=== PATIENT | female | born 1940 | race Caucasian/White ===

== ENCOUNTER → 2017-02-09 | Outpatient (CLI) | payer MEDICARE, OTHER ==
--- NOTE | 2017-02-09 14:24 | US ---
EXAMINATION TYPE: US abdomen complete DATE OF EXAM: 02/09/2017 2:09 PM COMPARISON: US 2012 CLINICAL HISTORY: R10.33 PERIUMBILICAL PAIN; Epigastric and pelvic pain EXAM MEASUREMENTS: Liver Length: 12.6 cm Gallbladder Wall: 02 cm CBD: 0.6 cm Spleen: 8.0 cm Right Kidney: 11.5 x 6.2 x 4.7 cm Left Kidney: 12.4 x 8.4 x 6.5 cm Pancreas: hyperechoic Liver: attenuated Gallbladder: shadowing, solitary stone near neck, with minimal mobility, size = 1.4 x 1.3 x 0.5cm Evidence for sonographic Meyers's sign: No CBD: wnl Spleen: wnl Right Kidney: wnl Left Kidney: lobular appearance; mid pole cyst = 2.0 x 2.1 x 1.8cm Upper IVC: wnl Abd Aorta: wnl IMPRESSION: 1. Hepatic steatosis. 2. Gallstone near the gallbladder neck. 3. Left renal cyst.
== END | disposition home or self-care (01) ==
LOC: RADUSWWP 13:11
PROVIDERS: ATTEND Family Medicine
DX: K76.0 Fatty (change of) liver, not elsewhere classified (principal); K80.20 Calculus of gallbladder without cholecystitis without obstruction; N28.1 Cyst of kidney, acquired
CPT/HCPCS: 76700

== ENCOUNTER 2017-03-02 08:44 | Day surgery (SDC) | payer MEDICARE, OTHER ==
[2017-02-27 11:43] VITALS: BMI 28.2
[~2017-03-02 08:44] MED LIST: CLINDAMYCIN 900 MG in DEXTROSE 5% IN WATER 50 ML IVPB ONE; DEXAMETHASONE SOD PHOSPHATE 10 MG/ML 1 ML VIAL IV ONE; HEPARIN SODIUM,PORCINE 5,000 UNIT/ML 1 ML VIAL SQ ONE; LACTATED RINGERS 1,000 ML IV SCH; LIDOCAINE 1% 20 ML VIAL (10MG/ML) FOR IV START INTRADERMA PRN; MIDAZOLAM 2 MG/2 ML VIAL IV PRN; ONDANSETRON 4 MG/2 ML VIAL IVP ONE; SCOPOLAMINE 1.5MG/72HR PATCH TRANSDERM ONE
[2017-03-02] MEDS ORDERED: BUPIVACAIN-EPI 0.25%-1:200,000 30 ML VIAL SQ ONE ×3 (10:25→11:30)
[2017-03-02] MEDS ORDERED: GLYCOPYRROLATE 0.2 MG/ML 2 ML VIAL ONE (10:26)
[2017-03-02] MEDS ORDERED: ePHEDrine 50 MG/ML 1 ML AMP ONE (10:26)
[2017-03-02] MEDS ORDERED: MIDAZOLAM 2 MG/2 ML VIAL ONE (10:26)
[2017-03-02] MEDS ORDERED: ROCURONIUM BROMIDE 10 MG/ML 10 ML VIAL IV ONE (10:26)
[2017-03-02] MEDS ORDERED: SUCCINYLCHOLINE CHLORIDE 100 MG/5 ML SYR IV ONE (10:26)
[2017-03-02] MEDS ORDERED: PROPOFOL 10 MG/ML 20 ML VIAL IV ONE (10:26)
[2017-03-02] MEDS ORDERED: LIDOCAINE 1% INJ 10MG/ML (20 ML MDV) ONE (10:26)
[2017-03-02] MEDS ORDERED: NEOSTIGMINE 1 MG/ML 10 ML VIAL ONE (10:26)
[2017-03-02] MEDS ORDERED: fentaNYL (PF) 50 MCG/ML 2 ML AMP ONE (10:26)
[2017-03-02] MEDS ORDERED: LACTATED RINGERS 1,000 ML IV ONE (11:29)
[2017-03-02 11:52] VITALS: TEMP 96.9
--- NOTE | 2017-03-02 11:57 | P.OP ---
Date of Procedure: 03/02/17 Preoperative Diagnosis: Chronic choelcystitis Postoperative Diagnosis: Chronic cholecystitis Procedure(s) Performed: Laparoscopic cholecystectomy Implants: Anesthesia: SPARKLE Surgeon: Lauren Dubon Pathology: other Condition: stable Disposition: PACU Indications for Procedure: Intetrmittent RUQ pain with ultrasound proven cholelithiasis Operative Findings: Chronic inflamed gall bladder with gallstone Description of Procedure: The patient is a 28-year-old female who presented with epigastric and upper abdominal pain which localized in the right upper quadrant was tender with an ultrasound suggested cholelithiasis. Clinical diagnosis of chronic cholecystitis was made. The risks benefits and possible complications of the procedure were discussed in detail and informed consent was obtained. Patient was identified in the preop operating holding area questions were answered and she was taken back to the operating room where she was placed in the supine position. She was given general anesthesia with endotracheal intubation followed by the placement of an orogastric tube and a timeout was called. The Abdomen is prepped and draped in the usual sterile surgical fashion. After infiltraiton with local anesthesia, let upper qadrant was incised and the abdomen was entered using the optiview technique under direct vision. THe abdomen was then isufflated to 15 mm HG and an epigastric 10 mm port, a subumbilical 5 mm port, 2 RUQ 5 mm ports were placed under vision. The patient had dense adhesions with the peritoneum and the omentum. There were meticulously taken down with the help of blunt dissection pulling up the fundus into view. There were dense adhesions around the cystic duct and in the Region of the Calot's triangle. Meticulous dissection was done to expose the cystic duct and the cystic artery after which they were clipped proximal and distally and sharply transected. The gallbladder was then taken off the gallbladder fossa with the help of electrocautery. Hemostasis to the help of electrocautery. Furthermore Surgicel was placed in the gallbladder fossa to aid in hemostasis. The abdomen was thoroughly irrigated and sucked dry. Jim were noted to be in the appropriate position at this time to take procedure was terminated. the 10 mm port was removed and the port site was closed with the help of a True Dupont using 0 Vicryl.The Gas was shut off and all the 5 mm ports were removed. The abdomen was thoroughly desufflated. The remaining local anesthesia was infiltrated into the incisions and the incisions were closed with the help of 4-0 Monocryl Steri-Strips and Dermabond was applied. The patient was extubated and taken to recovery room in stable condition and Álvarez catheter were removed prior to extubation. There were no complications.
[2017-03-02] MEDS ORDERED: hydrALAZINE HCL 20 MG/ML 1 ML VIAL IV ONE (12:13)
[2017-03-02] MEDS: HYDROmorphone 1 MG/ML 1 ML SYRINGE IVP PRN ×5 (12:23→12:40)
[2017-03-02] MEDS ORDERED: KETOROLAC 30 MG/ML 1 ML VIAL IVP ONE (12:44)
[2017-03-02] MEDS ORDERED: HYDROcodone/APAP 5-325MG 1 EACH TAB PO ONE (13:38)
[2017-03-02 14:36] VITALS: BP 131/78; PULSE 81; RESP 16
== END 2017-03-02 16:03 | disposition home or self-care (01) ==
LOC: OR 08:44
PROVIDERS: ATTEND Surgery
DX: K80.12 Calculus of gallbladder with acute and chronic cholecystitis without obstruction (principal); E07.9 Disorder of thyroid, unspecified; Z87.891 Personal history of nicotine dependence; Z79.82 Long term (current) use of aspirin; Z79.899 Other long term (current) drug therapy; Z88.0 Allergy status to penicillin
CPT/HCPCS: 88304; 47562; J2250; J0360; J1644; J1100; J2710; J2405; J2001; J3010; J1885; J1170; J0330; J2704

== ENCOUNTER → 2017-09-21 | Outpatient (CLI) | payer MEDICARE, OTHER ==
--- NOTE | 2017-09-25 09:48 | MM ---
Reason for exam: screening (asymptomatic). Last mammogram was performed 1 year ago. History: Patient is postmenopausal. Benign left mammotome panel of the left breast, October 07, 2005. Physical Findings: A clinical breast exam by your physician is recommended on an annual basis and results should be correlated with mammographic findings. MG 3D Screening Mammo W/Cad Bilateral CC and MLO view(s) were taken. Prior study comparison: September 21, 2016, bilateral MG 3d screening mammo w/cad. July 01, 2015, bilateral MG screening mammo w CAD. The breast tissue is heterogeneously dense. This may lower the sensitivity of mammography. Previous mammotome biopsy in the left breast. No significant changes when compared with prior studies. ASSESSMENT: Benign, BI-RAD 2 RECOMMENDATION: Routine screening mammogram of both breasts in 1 year.
== END | disposition home or self-care (01) ==
LOC: RADMAMWWP 13:45
PROVIDERS: ATTEND Family Medicine
DX: Z12.31 Encounter for screening mammogram for malignant neoplasm of breast (principal)
CPT/HCPCS: 77063; G0202

== ENCOUNTER 2017-09-28 08:15 | Day surgery (SDC) | payer MEDICARE, OTHER ==
[2017-09-26 12:33] VITALS: BMI 29.0
[~2017-09-28 08:15] MED LIST changes: -CLINDAMYCIN 900 MG in DEXTROSE 5% IN WATER 50 ML IVPB ONE; -DEXAMETHASONE SOD PHOSPHATE 10 MG/ML 1 ML VIAL IV ONE; -HEPARIN SODIUM,PORCINE 5,000 UNIT/ML 1 ML VIAL SQ ONE; -LIDOCAINE 1% 20 ML VIAL (10MG/ML) FOR IV START INTRADERMA PRN; -MIDAZOLAM 2 MG/2 ML VIAL IV PRN; -ONDANSETRON 4 MG/2 ML VIAL IVP ONE; -SCOPOLAMINE 1.5MG/72HR PATCH TRANSDERM ONE
[2017-09-28 08:37] VITALS: RESP 16; TEMP 97
[2017-09-28] MEDS ORDERED: LIDOCAINE 1% 20 ML VIAL (10MG/ML) FOR IV START INTRADERMA ONE (08:48)
[2017-09-28] MEDS ORDERED: MIDAZOLAM 2 MG/2 ML VIAL ONE (09:17)
[2017-09-28] MEDS ORDERED: PROPOFOL 10 MG/ML 20 ML VIAL IV ONE (09:17)
[2017-09-28] MEDS ORDERED: LIDOCAINE 1% INJ 10MG/ML (20 ML MDV) ONE (09:17)
--- NOTE | 2017-09-28 10:01 | P.PCN ---
Date of Procedure: 09/28/17 Procedure(s) Performed: BRIEF HISTORY: Patient is a 77-year-old, pleasant, white female, scheduled for an upper endoscopy as a part of evaluation of severe epigastric pain and heartburn for the last several months duration. Recently she was started on Prilosec 20 mg daily and symptoms and symptoms are gradually improving. She is scheduled for an upper endoscopy to rule out peptic ulcer disease. PROCEDURE PERFORMED: Esophagogastroduodenoscopy with biopsy. PREOPERATIVE DIAGNOSIS: Epigastric pain/GERD IV sedation per anesthesia. PROCEDURE: After informed consent was obtained, the patient was brought into the endoscopy unit. IV sedation was administered by Anesthesia under continuous monitoring. Initially the Olympus GIF-140 video endoscope was inserted into the mouth. Esophagus intubated without any difficulty. It was gradually advanced into the stomach and duodenum and carefully examined. The bulb and the second part of the duodenum appeared normal. The scope at this time was withdrawn to the stomach, adequately insufflated with air, and upon careful examination, mucosa of the antrum, had multiple scattered erosions consistent with erosive gastritis and biopsies were done from this area. The body, cardia and the fundus appeared normal. The scope was then withdrawn into the esophagus. The GE junction was located at 39 cm from the incisors. The esophagus appeared normal. Biopsies were done from the distal esophagus to rule out years of age esophagitis. There were no erosions or ulcerations seen and the patient tolerated the procedure well. IMPRESSION: 1. Antral erosive gastritis. 2. No evidence of esophagitis or peptic ulcer disease. RECOMMENDATIONS: The findings of this examination were discussed with the patient as well as a family. She was advised to follow with the biopsy results. She will continue with Prilosec 20 mg daily and follow antireflux measures..
[2017-09-28 10:20] VITALS: BP 173/83; PULSE 49
== END 2017-09-28 10:35 | disposition home or self-care (01) ==
LOC: ORWHC2ENDO 08:15
PROVIDERS: ATTEND Internal Medicine Gastroenterology
DX: K29.50 Unspecified chronic gastritis without bleeding (principal); K21.9 Gastro-esophageal reflux disease without esophagitis; I10 Essential (primary) hypertension; Z79.899 Other long term (current) drug therapy; E78.5 Hyperlipidemia, unspecified; E07.9 Disorder of thyroid, unspecified; Z79.82 Long term (current) use of aspirin; Z79.1 Long term (current) use of non-steroidal anti-inflammatories (NSAID); Z88.0 Allergy status to penicillin
CPT/HCPCS: 88305; 88342; 43239; J2250; J2001; J2704

== ENCOUNTER → 2018-05-22 | Outpatient (CLI) | payer MEDICARE, OTHER ==
--- NOTE | 2018-05-23 10:10 | ECHOF ---
Referral Reason:R06.02 Dyspnea MEASUREMENTS -------- HEIGHT: 165.1 cm WEIGHT: 81.6 kg BP: RVIDd: 2.6 cm (< 3.3) IVSd: 1.0 cm (0.6 - 1.1) LVIDd: 4.5 cm (3.9 - 5.3) LVPWd: 1.1 cm (0.6 - 1.1) IVSs: 1.1 cm LVIDs: 3.6 cm LVPWs: 1.0 cm LA Diam: 2.7 cm (2.7 - 3.8) LAESV Index (A-L): 35.64 ml/m Ao Diam: 3.2 cm (2.0 - 3.7) AV Cusp: 2.2 cm (1.5 - 2.6) LA Diam: 3.6 cm (2.7 - 3.8) MV EXCURSION: 18.547 mm (> 18.000) MV EF SLOPE: 172 mm/s (70 - 150) EPSS: 1.9 cm MV E Addi: 0.94 m/s MV DecT: 177 ms MV A Addi: 0.00 m/s MV E/A Ratio: 927.04 RAP: 5.00 mmHg RVSP: 41.81 mmHg FINDINGS -------- Sinus rhythm. This was a technically adequate study. The left ventricular size is normal. Left ventricular wall thickness is normal. Overall left vent ricular systolic function is mildly impaired with, an EF between 45 - 50 %. Septal Hypokinesis The right ventricle is normal in size and function. LA is moderately dilated 34-39 ml/m2 RA appears enlarged. Aortic valve is trileaflet and is moderately thickened. Trace to mild aortic regurgitation. There is no evidence of aortic stenosis. The mitral valve leaflets are mildly thickened. Mild mitral annular calcification present. Modera te mitral regurgitation is present. Mild tricuspid regurgitation present. There is mild pulmonary hypertension. The right ventricular systolic pressure, as measured by Doppler, is 41.81mmHg. Trace/mild (physiologic) pulmonic regurgitation. The aortic root size is normal. The IVC is dilated with normal collapse. There is no pericardial effusion. CONCLUSIONS -------- 1. Sinus rhythm. 2. This was a technically adequate study. 3. The left ventricular size is normal. 4. Left ventricular wall thickness is normal. 5. Overall left ventricular systolic function is mildly impaired with, an EF between 45 - 50 %. 6. Septal Hypokinesis 7. LA is moderately dilated 34-39 ml/m2 8. RA appears enlarged. 9. Aortic valve is trileaflet and is moderately thickened. 10. Trace to mild aortic regurgitation. 11. There is no evidence of aortic stenosis. 12. The mitral valve leaflets are mildly thickened. 13. Mild mitral annular calcification present. 14. Moderate mitral regurgitation is present. 15. Mild tricuspid regurgitation present. 16. There is mild pulmonary hypertension. 17. The right ventricular systolic pressure, as measured by Doppler, is 41.81mmHg. 18. Trace/mild (physiologic) pulmonic regurgitation. 19. The aortic root size is normal. 20. The IVC is dilated with normal collapse. 21. There is no pericardial effusion. ACCOUNTS RECEIVABLE PROCESSOR: Guanako Bunn RDCS
== END | disposition home or self-care (01) ==
LOC: RADECHMAIN 15:21
PROVIDERS: ATTEND Family Medicine
DX: I08.1 Rheumatic disorders of both mitral and tricuspid valves (principal); I27.20 Pulmonary hypertension, unspecified
CPT/HCPCS: 93306

== ENCOUNTER 2018-05-29 07:57 | Inpatient (IN) | payer MEDICARE, OTHER ==
[2018-05-29] MEDS ORDERED: ALPRAZolam 0.5 MG TAB PO PRN (10:29)
[2018-05-29] MEDS ORDERED: SODIUM CHLORIDE 0.9% 1,000 ML in EMPTY BAG 1 BAG IV ONE (10:29)
[2018-05-29] MEDS ORDERED: NITROGLYCERIN SL TABS 0.4 MG TAB SUBLINGUAL PRN (10:29)
[2018-05-29] MEDS ORDERED: ALPRAZolam 0.25 MG TAB PO PRN (10:29)
--- NOTE | 2018-05-29 10:54 | NM ---
EXAMINATION TYPE: NM myocardial SPECT single DATE OF EXAM: 05/29/2018 COMPARISON: NONE HISTORY: Abnormal echo Following administration of 9.8 mCi Tc 99m Sestamibi. Images obtained 45 minutes post injection. FINDINGS: Rest images are submitted only. Could not exclude a defect along the inferior margin of the septum. N o perfusion images are submitted in the exam is nondiagnostic in assessment for some stress-induced reversible ischemia. Ejection fraction 49%. IMPRESSION: Stress images were not completed the exam is nondiagnostic for stress-induced reversible ischemia. Ej ection fraction is 49%.
--- NOTE | 2018-05-29 10:58 | XR ---
EXAMINATION TYPE: XR chest 2V DATE OF EXAM: 05/29/2018 COMPARISON: NONE TECHNIQUE: PA and lateral views submitted. HISTORY: Abnormal echo, shortness of breath FINDINGS: The lungs are clear and there is no pneumothorax, pleural effusion, or focal pneumonia. Atheroscler otic change aorta. Arthropathy of the shoulders. Hypertrophic and degenerative change of the spine. S urgical clips in the abdomen. No overt failure. Linear changes in the left upper lobe likely related to scar or atelectasis. No overt failure. IMPRESSION: 1. No acute process.
[2018-05-29] MEDS ORDERED: HEPARIN SODIUM,PORCINE 5,000 UNIT/ML 1 ML VIAL IV PRN (14:28)
[2018-05-29] MEDS ORDERED: HEPARIN SOD,PORK IN 0.45% NACL 25,000 UNIT in 0.45% NACL 1 500ML.BAG IV SCH (14:30)
[2018-05-29 14:38] VITALS: BMI 28.1
--- NOTE | 2018-05-29 14:41 | CONS ---
CONSULTATION Mrs. Nixon is a 77-year-old female with known history of hypertension, history of hyperlipidemia who presented to undergo a myocardial perfusion imaging. For the last few months, she has been complaining of progressive dyspnea on exertion as well as discomfort between the shoulder blades. She recently had an echocardiogram revealed mildly impaired left ventricular systolic function with segmental wall motion abnormality. The patient denies any knowledge of a history of congestive heart failure or obstructive coronary artery disease. She has been told that she had an irregular heartbeat and had a Holter monitor a few years ago, but she is not aware of atrial fibrillation. She has no dizziness. She has some palpitation. No syncope. No clear PND or orthopnea. She has peripheral edema that is getting worse. Her coronary risk factors are remarkable for hypertension, hyperlipidemia. She is nondiabetic. She stopped smoking 20 years ago. MEDICATION: Her medications include Zestril, atenolol, Dyazide, statin. REVIEW OF SYSTEMS: RESPIRATORY SYSTEM: She had dyspnea on exertion. No recent wheezing or cough. GI SYSTEM: No recent GI bleed. No peptic ulcer disease. SYSTEM: No dysuria or hematuria. NERVOUS SYSTEM: No stroke or seizure. PHYSICAL EXAMINATION: She is a 77-year-old female, alert, oriented, in no apparent distress. Blood pressure 160/100 with the heart rate in the 60s. HEAD: Normocephalic. EYES: Sclerae anicteric. NECK: Good carotid upstroke. No bruit. No jugular venous distention. LUNGS: Clear to auscultation. HEART: Irregular, irregular. S1, S2. No S3 with systolic murmur at the base, ejection type. No diastolic murmur. No rub. ABDOMEN: Soft, nontender. Positive bowel sounds. No organomegaly. EXTREMITIES: +1 to 2 edema bilaterally. EKG revealed atrial fibrillation with nonspecific ST-T wave changes. IMPRESSION: 1. Symptoms of discomfort, interscapular, exertional in pattern with dyspnea on exertion, highly suggestive of angina pectoris. 2. Atrial fibrillation of unknown duration. 3. Hypertension. 4. Symptoms of congestive heart failure. 5. Hyperlipidemia. RECOMMENDATION: We will hold on the stress test. I will admit the patient to the hospital. She will receive intravenous heparin, intravenous diuretics and serial enzymes will be obtained. I would recommend to proceed with coronary angiography to assess her status and guide her treatment. The rationale behind the procedure as well as the risks and complications were discussed with the patient who is in full understanding and agreement. MMODL / IJN: [id number] /
[2018-05-29 14:59] LABS: Basophils % (A) 1 %; Eosinophils # (A) 0.2 k/uL (0-0.7); Eosinophils % (A) 4 %; HCT 41.4 % (34.0-46.0); HGB 13.6 gm/dL (11.4-16.0); Lymphocytes # (A) 1.1 k/uL (1.0-4.8); Lymphocytes % (A) 19 %; MCH 30.2 pg (25.0-35.0); MCHC 32.9 g/dL (31.0-37.0); MCV 91.7 fL (80.0-100.0); Monocytes # (A) 0.6 k/uL (0-1.0); Monocytes % (A) 10 %; Neutrophils # (A) 3.8 k/uL (1.3-7.7); Neutrophils % (A) 65 %; Platelet Count 176 k/uL (150-450); RBC 4.51 m/uL (3.80-5.40); RDW 14.5 % (11.5-15.5); WBC 5.9 k/uL (3.8-10.6)
[2018-05-29] MEDS ORDERED: HEPARIN SODIUM,PORCINE 5,000 UNIT/ML 1 ML VIAL IV ONE (15:00)
[2018-05-29 15:09] LABS: INR 1.2 (<1.2); Partial Thromboplastin Time 25.3 sec (22.0-30.0); Prothrombin Time 11.3 sec (9.0-12.0)
[2018-05-29 15:13] LABS: Calcium 9.2 mg/dL (8.4-10.2); Potassium 4.1 mmol/L (3.5-5.1); Total Bilirubin 0.9 mg/dL (0.2-1.3); Total Protein 6.8 g/dL (6.3-8.2)
[2018-05-29] MEDS: NITROGLYCERIN OINT 1 INCH/GM PACKET TOPICAL SCH ×3 (15:55→22:24)
[2018-05-29] MEDS: FUROSEMIDE 10 MG/ML 2 ML VIAL IV SCH ×2 (16:20→20:05)
--- NOTE | 2018-05-29 16:58 | P.HPIM ---
History of Present Illness Patient is a very pleasant 77-year-old female came in with complaints of on and off shortness of breath has been going on for some time. Denied any significant chest pain but does have some palpitations going to the back of the scapula. Patient denied any fever chills. Patient was supposed to get stress test today did not complete the stresses because of elevated blood pressure. Patient was having on and off symptoms of irregular heartbeat because of which patient had a Holter monitor in the past patient has bilateral pedal edema worsening progressively for about last 2 months pitting pedal edema although doesn't have any elevated JVD does have elevated BNP chest x-ray did not show any pulmonary edema. Patient denied any symptoms of orthopnea or PND. Patient was evaluated by cardiology and they believe patient has an anginal he couldn't of shortness of breath, unstable angina and was started on IV heparin troponins and EKGs are being obtained every 6 hours and patient will undergo cardiac catheterization tomorrow. Review of Systems REVIEW OF SYSTEMS: CONSTITUTIONAL: No fever, no malaise, no fatigue. HEENT: No recent visual problems or hearing problems. Denied any sore throat. CARDIOVASCULAR: As mentioned in HPI PULMONARY: no cough, no hemoptysis. GASTROINTESTINAL: No diarrhea, no nausea, no vomiting, no abdominal pain. Normoactive bowel sounds. NEUROLOGICAL: No headaches, no weakness, no numbness. HEMATOLOGICAL: Denies any bleeding or petechiae. GENITOURINARY: Denies any burning micturition, frequency, or urgency. MUSCULOSKELETAL/RHEUMATOLOGICAL: Denies any joint pain, swelling, or any muscle pain. ENDOCRINE: Denies any polyuria or polydipsia. The rest of the 14-point review of systems is negative. Past Medical History Past Medical History: Hyperlipidemia, Hypertension, Thyroid Disorder Additional Past Medical History / Comment(s): OCC. IRREGULAR HEART BEAT ( TOLD TO STOP CAFFEINE). , Bladder LEAKAGE. History of Any Multi-Drug Resistant Organisms: None Reported Past Surgical History: Cholecystectomy, Orthopedic Surgery Additional Past Surgical History / Comment(s): AD CARPAL TUNNEL.; Colonoscopy/ EGD, rt knee arthroscopy Past Anesthesia/Blood Transfusion Reactions: No Reported Reaction Past Psychological History: No Psychological Hx Reported Additional Psychological History / Comment(s): pt is independant, lives with spouse in own home. drives. no home care services, no medical equipment Smoking Status: Former smoker Past Alcohol Use History: Occasional Additional Past Alcohol Use History / Comment(s): QUIT SMOKING 1995,STARTED SMOKING 1956. SMOKED < 1PPD. SMOKED APPROX 38 YEARS. Past Drug Use History: None Reported - Past Family History Mother Family Medical History: Coronary Artery Disease (CAD) Additional Family Medical History / Comment(s): CABG IN HER 80'S Father Family Medical History: Chest Pain / Angina Additional Family Medical History / Comment(s): THIEN AT AGE 57 Medications and Allergies Home Medications Medication Instructions Recorded Confirmed Type Aspirin 81 mg PO DAILY 06/25/15 05/29/18 History B Complex-Vit C-Vit E-Zinc [Z-Bec] 1 tab PO DAILY 06/25/15 05/29/18 History Biotin 5 mg PO DAILY 06/25/15 05/29/18 History Cholecalciferol [Vitamin D3] 1,000 units PO DAILY 06/25/15 05/29/18 History Ferrous Sulfate [Feosol] 325 mg PO MOWEFR 06/25/15 05/29/18 History Levothyroxine Sodium [Synthroid] 112 mcg PO QAM 06/25/15 05/29/18 History Lisinopril [Zestril] 40 mg PO DAILY 06/25/15 05/29/18 History Triamterene-Hctz 37.5-25Mg 1 cap PO DAILY 06/25/15 05/29/18 History [Dyazide] Atenolol [Tenormin] 100 mg PO BID 02/27/17 05/29/18 History Simvastatin [Zocor] 20 mg PO DAILY 02/27/17 05/29/18 History Omeprazole [PriLOSEC] 20 mg PO AC-BRKFST 09/26/17 05/29/18 History Calcium Slow Release 1200mg 1 tab PO DAILY 05/29/18 05/29/18 History Allergies Allergy/AdvReac Type Severity Reaction Status Date / Time Penicillins Allergy Rash/Hives Verified 05/29/18 14:37 Physical Exam Vitals: Vital Signs Temp Resp BP 05/29/18 14:19 96.9 F L 18 134/80 Intake and Output 05/29/18 05/29/18 05/29/18 06:59 14:59 22:59 Other: Weight 81.5 kg PHYSICAL EXAMINATION: GENERAL: The patient is alert and oriented x3, not in any acute distress. Well developed, well nourished. HEENT: Pupils are round and equally reacting to light. EOMI. No scleral icterus. No conjunctival pallor. Normocephalic, atraumatic. No pharyngeal erythema. No thyromegaly. CARDIOVASCULAR: S1 and S2 present. No murmurs, rubs, or gallops. No JVD PULMONARY: Chest is clear to auscultation, no wheezing or crackles. ABDOMEN: Soft, nontender, nondistended, normoactive bowel sounds. No palpable organomegaly. MUSCULOSKELETAL: No joint swelling or deformity. EXTREMITIES: No cyanosis, clubbing, or bilateral pitting pedal edema. NEUROLOGICAL: Gross neurological examination did not reveal any focal deficits. SKIN: No rashes. Results CBC & Chem 7: 05/29/18 14:47 05/29/18 14:47 Labs: Abnormal Lab Results - Last 24 Hours (Table) 05/29/18 05/29/18 Range/Units 14:47 14:47 INR 1.2 H (<1.2) Glucose 132 H (74-99) mg/dL AST 52 H (14-36) U/L ALT 75 H (9-52) U/L Assessment and Plan Plan: -Shortness of breath: Possible anginal equal and: Patient will undergo cardiac catheterization troponins and EKGs will be obtained. Patient will undergo cardiac catheterization is on IV heparin -Bilateral pedal edema with elevated BNP: Patient is receiving Lasix echocardiogram will obtain tomorrow. -Possible atrial fibrillation: Will monitor here overnight for any episodes approximately A. fib presently sinus rhythm. -Hyperlipidemia -Hypertension For above-mentioned chronic medical problems patient will be resumed and continued on appropriate home medications
[2018-05-29] MEDS: ATENOLOL 50 MG TAB PO SCH (20:05)
[2018-05-30 03:45] LABS: Basophils % (A) 1 %; Eosinophils # (A) 0.3 k/uL (0-0.7); Eosinophils % (A) 4 %; HCT 40.8 % (34.0-46.0); HGB 12.4 gm/dL (11.4-16.0); Lymphocytes # (A) 1.8 k/uL (1.0-4.8); Lymphocytes % (A) 24 %; MCH 28.2 pg (25.0-35.0); MCHC 30.4 g/dL (31.0-37.0); MCV 92.9 fL (80.0-100.0); Monocytes # (A) 0.7 k/uL (0-1.0); Monocytes % (A) 9 %; Neutrophils # (A) 4.5 k/uL (1.3-7.7); Neutrophils % (A) 60 %; Platelet Count 172 k/uL (150-450); RBC 4.39 m/uL (3.80-5.40); RDW 14.7 % (11.5-15.5); WBC 7.4 k/uL (3.8-10.6)
[2018-05-30 04:27] LABS: Calcium 8.8 mg/dL (8.4-10.2); Potassium 3.4 mmol/L (3.5-5.1)
[2018-05-30] MEDS: NITROGLYCERIN OINT 1 INCH/GM PACKET TOPICAL SCH (06:03)
[2018-05-30] MEDS: LEVOTHYROXINE 112 MCG TAB PO SCH (06:04)
[2018-05-30] MEDS: LISINOPRIL 20 MG TAB PO SCH (06:05)
[2018-05-30] MEDS: ATENOLOL 50 MG TAB PO SCH ×2 (06:05→20:09)
[2018-05-30] MEDS: PANTOPRAZOLE 40 MG TABLET PO SCH (06:05)
[2018-05-30] MEDS ORDERED: POTASSIUM CHLORIDE 20 MEQ in WATER FOR INJECTION 1 100ML.BAG IVPB STA (08:19)
[2018-05-30] MEDS ORDERED: ASPIRIN 81 MG PO SCH (09:00)
[2018-05-30] MEDS ORDERED: ATORVASTATIN 10 MG TAB PO SCH (09:00)
[2018-05-30] MEDS ORDERED: HEPARIN SODIUM 1,000 UN/ML (10ML VL) ONE (09:34)
[2018-05-30] MEDS ORDERED: LIDOCAINE 1% INJ 10MG/ML (20 ML MDV) ONE (09:34)
[2018-05-30] MEDS ORDERED: fentaNYL (PF) 50 MCG/ML 2 ML AMP ONE (09:34)
[2018-05-30] MEDS ORDERED: VERAPAMIL 2.5 MG/ML 2 ML AMP ONE (09:34)
[2018-05-30] MEDS ORDERED: fentaNYL (PF) 50 MCG/ML 2 ML AMP IVP ONE (10:15)
[2018-05-30] MEDS ORDERED: LIDOCAINE 1% (PF) 10MG/ML VIAL SQ ONE (10:18)
[2018-05-30] MEDS ORDERED: IV FLUID CONTINUATION 1,000 ML IV ONE (10:20)
[2018-05-30] MEDS ORDERED: VERAPAMIL SYRINGE (5 MG/10 ML) INTRAARTER ONE (10:24)
[2018-05-30] MEDS ORDERED: MIDAZOLAM 2 MG/2 ML VIAL ONE (10:25)
[2018-05-30] MEDS ORDERED: MIDAZOLAM 2 MG/2 ML VIAL IVP ONE (10:27)
[2018-05-30] MEDS ORDERED: IOPAMIDOL-370 125ML BTL INJ ONE (10:36)
[2018-05-30] MEDS ORDERED: FLUID CONTINUATION IV ONE ×2 (10:41)
[2018-05-30] MEDS ORDERED: [UNRECOGNIZED DRUG - OTHER] IV ONE ×2 (10:41)
[2018-05-30] MEDS ORDERED: RX INFO: IV CONTRAST WAS GIVEN 1 EACH MISC MISCELLANE PRN (10:57)
[2018-05-30] MEDS ORDERED: SODIUM CHLORIDE 0.9% 1,000 ML IV SCH (11:00)
--- NOTE | 2018-05-30 12:21 | P.PN ---
Subjective Patient was admitted for episodic shortness of breath which was believed secondary to coronary artery disease underwent cardia catheterization which not show any significant atherosclerotic coronary occlusive disease but was found to be in atrial fibrillation. Which probably is contributing to her shortness of breath. Patient is also being treated for congestive heart failure do not have an ejection fraction available no echocardiac exam is available at this time patient doesn't have any JVD does have pedal edema, chest x-ray did not show any pulmonary edema. Patient is started on anticoagulations by cardiology and patient is on atenolol for rate control and low-dose of Lasix. We will obtain basic metabolic profile tomorrow. Constitutional: Denied any fatigue denied any fever. Cardio vascular: denied any chest pain, palpitations Gastrointestinal denied any nausea vomiting Pulmonary: Denied any shortness of breath cough Neurologic denied any new focal deficits Objective - Vital Signs Vital signs: Vital Signs Temp 97.1 F L 05/30/18 08:00 Pulse 66 05/30/18 08:00 Resp 18 05/30/18 08:00 BP 141/76 05/30/18 08:00 Pulse Ox 97 05/30/18 08:00 Intake & Output 05/29/18 05/30/18 05/30/18 18:59 06:59 18:59 Intake Total 243.794 225 Output Total 800 Balance -556.206 225 Weight 81.5 kg 82.3 kg Intake: IV 225 Intake, IV Titration 243.794 Amount Heparin Sod,Pork in 0.45% 243.794 NaCl 25,000 unit In 0.45 % NaCl 1 500ml.bag @ 12 UNITS/KG/HR 19.56 mls/hr IV .Q24H [facility] Rx#: [id number] Output: Urine 800 Other: Voiding Method Toilet Toilet # Voids 2 - Exam PHYSICAL EXAMINATION: GENERAL: The patient is alert and oriented x3, not in any acute distress. Well developed, well nourished. HEENT: Pupils are round and equally reacting to light. EOMI. No scleral icterus. No conjunctival pallor. Normocephalic, atraumatic. No pharyngeal erythema. No thyromegaly. CARDIOVASCULAR: S1 and S2 present. No murmurs, rubs, or gallops. PULMONARY: Chest is clear to auscultation, no wheezing or crackles. ABDOMEN: Soft, nontender, nondistended, normoactive bowel sounds. No palpable organomegaly. MUSCULOSKELETAL: Deferred to orthopedic surgery EXTREMITIES: No cyanosis, clubbing, or pedal edema. NEUROLOGICAL: Gross neurological examination did not reveal any focal deficits. SKIN: No rashes. - Labs CBC & Chem 7: 05/30/18 02:54 05/30/18 02:54 Labs: Abnormal Lab Results - Last 24 Hours (Table) 05/29/18 05/29/18 05/29/18 Range/Units 14:47 14:47 17:54 MCHC (31.0-37.0) g/dL INR 1.2 H (<1.2) APTT 82.7 H (22.0-30.0) sec Sodium (137-145) mmol/L Potassium (3.5-5.1) mmol/L BUN (7-17) mg/dL Glucose 132 H (74-99) mg/dL AST 52 H (14-36) U/L ALT 75 H (9-52) U/L 05/30/18 05/30/18 05/30/18 Range/Units 02:54 02:54 02:54 MCHC 30.4 L (31.0-37.0) g/dL INR (<1.2) APTT 78.0 H (22.0-30.0) sec Sodium 136 L (137-145) mmol/L Potassium 3.4 L (3.5-5.1) mmol/L BUN 20 H (7-17) mg/dL Glucose 120 H (74-99) mg/dL AST (14-36) U/L ALT (9-52) U/L Assessment and Plan Plan: -Shortness of breath: Probably secondary to atrial fibrillation presently rate controlled on atenolol is being started on anticoagulation. Patient underwent cardiac catheterization which did not show any significant atherosclerotic coronary occlusive disease -Bilateral pedal edema with elevated BNP: Patient is receiving Lasix echocardiogram not available at this time unsure whether patient has congestive heart failure. Awaiting cardiac cath reports. -Possible atrial fibrillation: Will monitor here overnight for any episodes approximately A. fib presently sinus rhythm. -Hyperlipidemia -Hypertension For above-mentioned chronic medical problems patient will be resumed and continued on appropriate home medications
[2018-05-30] MEDS ORDERED: POTASSIUM CHLORIDE 20 MEQ in WATER FOR INJECTION 1 100ML.BAG IVPB ONE (12:30)
--- NOTE | 2018-05-30 12:57 | CC ---
CARDIAC CATHETERIZATION REPORT Mrs. Nixon is a 77-year-old female known history of hypertension who presented with symptoms of progressive dyspnea as well as interscapular pain related to physical activity. Her echocardiogram was reported showing evidence of segmental wall motion abnormality. In view of that, recommendation was made regarding cardiac catheterization. The procedure as well as the risks and complications were discussed with the patient who is in full understanding and agreement. PROCEDURE: Patient was brought to catholic priest in the fasting semi-sedated state after receiving fentanyl and Benadryl and achieving moderate conscious sedated state. Using Xylocaine anesthesia in the Seldinger technique, a 6-Northern Irish sheath was introduced into the right radial artery. Selective right and left coronary angiography performed using 5-Northern Irish 3.5 bend right and left Gustabo catheters. Multiple views of coronary artery including hemiaxial views obtained. Following that 5-Northern Irish tight pigtail catheter was introduced in the left ventricle and a 30-degree WINSTON view of the left ventricle was obtained. Following that, catheter and sheaths were removed. Hemostasis was obtained with deployment of TR band. There was no immediate complication. Patient is returned to room in stable condition. Of note, the patient received intra-arterial verapamil as well as 4500 units of intravenous heparin. FINDINGS: LEFT MAIN: This is a large-sized vessel bifurcating in left circumflex, left anterior descending artery. Left main coronary artery has no evidence of high-grade stenosis. LEFT ANTERIOR DESCENDING ARTERY: This vessel gives rise to a large diagonal branch in mid segment. The LAD tapers down in distal third. The LAD and its branches have no evidence of high-grade stenosis. LEFT CIRCUMFLEX: This is a nondominant vessel, moderate in caliber giving rise to a large first obtuse marginal branch. The left circumflex as well as branches have no evidence of high-grade stenosis. RIGHT CORONARY ARTERY: This is a large dominant vessel bifurcating PDA and posterolateral segment and branches. In the distal segment prior to the bifurcation, there is a 30% to 40% plaque. The rest of the vessel has no high-grade stenosis. The right PDA reaches toward the inferoapical wall. LEFT VENTRICULOGRAM: Left ventriculogram was performed in 30-degree WINSTON view and revealed normal left ventricular size and systolic function. Ejection fraction is 55%. There was no significant mitral regurgitation. An incidental abdominal aortic aneurysm infrarenal was noted that appears to be small in size. HEMODYNAMICS: There was no gradient across the aortic valve. The left ventricle end- diastolic pressure was 20 to 24 mmHg. CONCLUSION: 1. Mild disease in the distal right coronary artery. 2. Normal left ventricular size and systolic function. 3. Evidence of abdominal aortic aneurysm. RECOMMENDATION: At this time, I will continue medical therapy, patient will be started on anticoagulation and if she continues to be in atrial fibrillation, attempt to cardiovert her back to sinus mechanism will be performed at a later time. Those findings and recommendation were discussed with the patient and her family who are in full understanding and agreement. An ultrasound of her abdomen will be obtained to further evaluate her abdominal aortic aneurysm. Duration of the procedure is 22 minutes. FLORES / SOHAILN: [id number] /
--- NOTE | 2018-05-30 13:03 | LTR ---
May 30, 2018 Re: Gillian Nixon Dear Dr. Marino: I had the opportunity to perform cardiac catheterization on Mrs. Nixon at [facility] on the 30 of May and a full copy of the procedure note will be forwarded to you. In brief, she was found to have mild disease in the distal right coronary artery with a normal left ventricular size and systolic function. An incidental finding was an abdominal aortic aneurysm that appears to be small in caliber. At this time, I will add anticoagulation in view of her atrial fibrillation and maximize her medical therapy and depending on her progress, further recommendation will be made regarding attempt to restore sinus mechanism. I will keep you updated on her progress. Thank you again for allowing me the opportunity to participate in her care. Please feel free to call for any questions. Sincerely yours, MD FLORES Tracy / FILIPE: [id number] /
[2018-05-30] MEDS ORDERED: Magnesium Replacement Protocol 1 EACH MISC MISCELLANE PRN (13:08)
[2018-05-30] MEDS: SPIRONOLACTONE 25 MG TAB PO SCH (13:24)
[2018-05-30] MEDS: MAGNESIUM SULFATE-D5W PMX 1 GM in DEXTROSE/WATER 1 100ML.BAG IVPB SCH ×2 (14:47→16:00)
[2018-05-30] MEDS: FUROSEMIDE 20 MG TAB PO SCH (19:41)
[2018-05-30] MEDS: FUROSEMIDE 10 MG/ML 2 ML VIAL IV SCH (20:34)
[2018-05-30 23:25] VITALS: RESP 16
[2018-05-31] MEDS: PANTOPRAZOLE 40 MG TABLET PO SCH (06:07)
[2018-05-31] MEDS: LEVOTHYROXINE 112 MCG TAB PO SCH (06:07)
[2018-05-31 07:13] LABS: Basophils % (A) 0 %; Eosinophils # (A) 0.3 k/uL (0-0.7); Eosinophils % (A) 5 %; HCT 39.1 % (34.0-46.0); HGB 12.6 gm/dL (11.4-16.0); Lymphocytes # (A) 1.4 k/uL (1.0-4.8); Lymphocytes % (A) 22 %; MCH 29.9 pg (25.0-35.0); MCHC 32.4 g/dL (31.0-37.0); MCV 92.4 fL (80.0-100.0); Mean Platelet Volume 8.2; Monocytes # (A) 0.6 k/uL (0-1.0); Monocytes % (A) 9 %; Neutrophils # (A) 3.9 k/uL (1.3-7.7); Neutrophils % (A) 62 %; Platelet Count 156 k/uL (150-450); RBC 4.23 m/uL (3.80-5.40); RDW 14.5 % (11.5-15.5); WBC 6.2 k/uL (3.8-10.6)
[2018-05-31 07:25] LABS: Calcium 8.8 mg/dL (8.4-10.2); Magnesium 2.3 mg/dL (1.6-2.3); Potassium 3.9 mmol/L (3.5-5.1)
--- NOTE | 2018-05-31 08:36 | US ---
EXAMINATION TYPE: US abdomen complete DATE OF EXAM: 05/31/2018 COMPARISON: 02/09/2017 CLINICAL HISTORY: AAA. Pt states possible aneurysm seen during heart cath, pt has no complaints at th is time, GB removed EXAM MEASUREMENTS: Liver Length: 14.8 cm CBD: 0.5 cm Spleen: 8.3 cm Right Kidney: 11.1 x 5.0 x 5.2 cm Left Kidney: 8.0 x 4.3 x 3.3 cm Pancreas: The visualized portions within normal limits. Portions of the pancreatic body and tail are obscured by bowel gas. Liver: wnl Gallbladder: Surgically absent Evidence for sonographic Meyers's sign: No CBD: wnl Spleen: wnl Right Kidney: wnl Left Kidney: Small in size with multiple cysts, largest at upper pole= 1.8 x 1.4 x 2.0 cm Upper IVC: wnl Abd Aorta: "Patient at distal portion with greatest measurement= 2.7 cm IMPRESSION: 1. There is shadowing involving the distal aorta which limits its assessment. There is Ectasia of the distal abdominal aorta measuring a maximal dimension 2.9 cm. This may be somewhat underestimation gi sincere shadowing. Somewhat irregular atherosclerotic plaque noted. A CAT scan is recommended for more co mplete analysis of the abdominal aorta. 2. Multiple tiny left-sided renal lesion suggestive of cysts
[2018-05-31] MEDS ORDERED: ATORVASTATIN 40 MG TAB PO SCH (09:00)
[2018-05-31 09:12] VITALS: TEMP 99.2
[2018-05-31] MEDS: ATENOLOL 50 MG TAB PO SCH (09:19)
[2018-05-31] MEDS: LISINOPRIL 20 MG TAB PO SCH (09:20)
[2018-05-31] MEDS: FUROSEMIDE 20 MG TAB PO SCH (09:20)
[2018-05-31] MEDS: SPIRONOLACTONE 25 MG TAB PO SCH (09:20)
--- NOTE | 2018-05-31 10:52 | PN ---
PROGRESS NOTE Mrs. Nixon is a 77-year-old female who presented with symptoms of dyspnea and interscapular discomfort with physical activity. She was noted to be in atrial fibrillation. She underwent cardiac catheterization revealed mild obstructive coronary artery disease. She is doing well today. She denies any chest pain, no palpitation. No syncope. She continued to be on Eliquis 5 mg twice a day, Tenormin 100 mg twice a day, Lipitor 40 mg daily, furosemide 40 mg twice a day, lisinopril 40 mg daily, levothyroxine, Protonix, spironolactone 25 mg daily. PHYSICAL EXAMINATION: Blood pressure 139/70 with the heart rate in the 70s. LUNGS: Clear. HEART: Irregular, irregular, S1, S2. No S3 with systolic murmur. ABDOMEN: Soft nontender. Right radial pulse intact. LAB DATA: Lab data revealed a potassium 3.9, BUN and creatinine 15 and 0.79. Hemoglobin of 12.6. IMPRESSION: 1. Atrial fibrillation of unknown duration, appears to be recent. 2. Mild coronary artery disease. 3. Symptoms of progressive dyspnea and congestive heart failure with preserved systolic function, probably exacerbated by the atrial fibrillation. RECOMMENDATION: Patient will be started on anticoagulation with Eliquis. Continue rest of medical regimen. She will be discharged home today and followed as an outpatient. MMODL / IJN: [id number] /
[2018-05-31 12:05] VITALS: BP 138/77; PULSE 64
--- NOTE | 2018-05-31 12:32 | P.DS ---
Providers Date of admission: 05/29/18 13:38 Attending physician: Daphne Walker Consults: 05/29/18 14:31 Consult Physician Routine Consulting Provider: Nata Chapa Consult Reason/Comments: Unstable angina Do you want consulting provider notified?: Already Contacted Primary care physician: R[facility] Course: Patient was admitted for episodic shortness of breath which was believed secondary to coronary artery disease underwent cardia catheterization which not show any significant atherosclerotic coronary occlusive disease but was found to be in atrial fibrillation. Which probably is contributing to her shortness of breath. Patient is also being treated for congestive heart failure do not have an ejection fraction available no echocardiac exam is available at this time patient doesn't have any JVD does have pedal edema, chest x-ray did not show any pulmonary edema. Patient is started on anticoagulations by cardiology and patient is on atenolol for rate control and low-dose of Lasix. We will obtain basic metabolic profile tomorrow. 05/31/2018 Patient's shortness of breath is believed secondary to atrial fibrillation which is well controlled rate is well controlled at this point of time beta alonso management and anticoagulation as per cardiology and patient is being discharged on Eliquis. My suspicion is low that the patient has systolic dysfunction or diastolic dysfunction patient does have peripheral edema will benefit from Lasix patient is also being discharged on Lasix and also lactone. Patient will follow with cardiology and the primary care physician as an outpatient PHYSICAL EXAMINATION: GENERAL: The patient is alert and oriented x3, not in any acute distress. Well developed, well nourished. HEENT: Pupils are round and equally reacting to light. EOMI. No scleral icterus. No conjunctival pallor. Normocephalic, atraumatic. No pharyngeal erythema. No thyromegaly. CARDIOVASCULAR: S1 and S2 present. No murmurs, rubs, or gallops. PULMONARY: Chest is clear to auscultation, no wheezing or crackles. ABDOMEN: Soft, nontender, nondistended, normoactive bowel sounds. No palpable organomegaly. MUSCULOSKELETAL: Deferred to orthopedic surgery EXTREMITIES: No cyanosis, clubbing, or pedal edema significant improved NEUROLOGICAL: Gross neurological examination did not reveal any focal deficits. SKIN: No rashes. Assessment and Plan Plan: -Shortness of breath: Probably secondary to atrial fibrillation presently rate controlled on atenolol -Bilateral pedal edema with elevated My suspicion is low that patient has chronic systolic and diastolic dysfunction patient may have peripheral edema patient does not have any pulmonary edema during this hospitalization. -Possible atrial fibrillation: Will monitor here overnight for any episodes approximately A. fib presently sinus rhythm. -Hyperlipidemia -Hypertension Plan - Discharge Summary Discharge Rx Participant: No New Discharge Prescriptions: New Apixaban [Eliquis] 5 mg PO BID #180 tab Atorvastatin [Lipitor] 40 mg PO DAILY #40 tab Furosemide [Lasix] 20 mg PO BID@0900,1600 #180 tab Spironolactone [Aldactone] 25 mg PO DAILY #90 tab Continue Ferrous Sulfate [Iron (65 MG Elemental)] 325 mg PO MOWEFR Cholecalciferol [Vitamin D3] 1,000 units PO DAILY B Complex-Vit C-Vit E-Zinc [Z-Bec] 1 tab PO DAILY Biotin 5 mg PO DAILY Lisinopril [Zestril] 40 mg PO DAILY Levothyroxine Sodium [Synthroid] 112 mcg PO QAM Atenolol [Tenormin] 100 mg PO BID Omeprazole [PriLOSEC] 20 mg PO AC-BRKFST Calcium Slow Release 1200mg 1 tab PO DAILY Discontinued Aspirin 81 mg PO DAILY Triamterene-Hctz 37.5-25Mg [Dyazide] 1 cap PO DAILY Simvastatin [Zocor] 20 mg PO DAILY Discharge Medication List B Complex-Vit C-Vit E-Zinc [Z-Bec] 1 tab PO DAILY 06/25/15 [History] Biotin 5 mg PO DAILY 06/25/15 [History] Cholecalciferol [Vitamin D3] 1,000 units PO DAILY 06/25/15 [History] Ferrous Sulfate [Iron (65 MG Elemental)] 325 mg PO MOWEFR 06/25/15 [History] Levothyroxine Sodium [Synthroid] 112 mcg PO QAM 06/25/15 [History] Lisinopril [Zestril] 40 mg PO DAILY 06/25/15 [History] Atenolol [Tenormin] 100 mg PO BID 02/27/17 [History] Omeprazole [PriLOSEC] 20 mg PO AC-BRKFST 09/26/17 [History] Calcium Slow Release 1200mg 1 tab PO DAILY 05/29/18 [History] Apixaban [Eliquis] 5 mg PO BID #180 tab 05/31/18 [Rx] Atorvastatin [Lipitor] 40 mg PO DAILY #40 tab 05/31/18 [Rx] Furosemide [Lasix] 20 mg PO BID@0900,1600 #180 tab 05/31/18 [Rx] Spironolactone [Aldactone] 25 mg PO DAILY #90 tab 05/31/18 [Rx] Follow up Appointment(s)/Referral(s): Nata Chapa MD [STAFF PHYSICIAN] - 1 Week Activity/Diet/Wound Care/Special Instructions: Greg pack filled @[facility] with free 30 day coupon Discharge Disposition: HOME SELF-CARE
[2018-05-31] MEDS ORDERED: RIVAROXABAN 20 MG TAB PO SCH (17:30)
[2018-05-31] MEDS ORDERED: APIXABAN 5 MG TAB PO SCH (21:00)
== END 2018-05-31 15:01 | disposition home or self-care (01) | DRG 287 ==
LOC: RADNMMAIN 07:57 → 6SEL 13:38
PROVIDERS: ADMIT Internal Medicine; ATTEND Internal Medicine
PROC: B2111ZZ Fluoroscopy of Multiple Coronary Arteries using Low Osmolar Contrast (ICD-10-PCS; principal; 2018-05-30 09:45)
PROC: 4A023N7 Measurement of Cardiac Sampling and Pressure, Left Heart, Percutaneous Approach (ICD-10-PCS; principal; 2018-05-30 09:45)
PROC: B2151ZZ Fluoroscopy of Left Heart using Low Osmolar Contrast (ICD-10-PCS; principal; 2018-05-30 09:45)
DX: I48.91 Unspecified atrial fibrillation (principal); I25.10 Atherosclerotic heart disease of native coronary artery without angina pectoris; E78.5 Hyperlipidemia, unspecified; I71.4 Abdominal aortic aneurysm, without rupture; Z79.01 Long term (current) use of anticoagulants; Z79.82 Long term (current) use of aspirin; Z79.899 Other long term (current) drug therapy; Z82.49 Family history of ischemic heart disease and other diseases of the circulatory system; Z87.891 Personal history of nicotine dependence; Z90.49 Acquired absence of other specified parts of digestive tract; Z79.890 Hormone replacement therapy; Z88.0 Allergy status to penicillin; I10 Essential (primary) hypertension; R60.9 Edema, unspecified
CPT/HCPCS: 71046; 76700; 78451; 80048; 80053; 80061; 83735; 83880; 84443; 84484; 85025; 85610; 85730; 93458

== ENCOUNTER → 2018-06-15 | Outpatient (CLI) | payer MEDICARE, OTHER ==
--- NOTE | 2018-06-17 11:17 | CT ---
EXAMINATION TYPE: CT angio abdomen DATE OF EXAM: 06/15/2018 4:38 PM COMPARISON: Ultrasound 05/31/2018 HISTORY: AORTIC ANEURYSM WITHOUT RUPTURE CT DLP: 1808 mGycm Automated exposure control for dose reduction was used. TECHNIQUE: Performed with IV Contrast, patient injected with 100 mL of Isovue 370. Three-D reconstructed images are performed by the technologist on the [employer] computer and presented f or review. FINDINGS: The proximal abdominal aorta below the renal arteries is 2.5 cm. There is some fusiform prominence wi thin the midportion of the abdominal aorta with an AP diameter 2.6 cm. The bifurcation is approximate ly 1.5 cm. Common iliac arteries internal and external iliac arteries to the common femoral arteries. Nonaneurysmal patent. No focal stenosis is evident renal arteries and superior mesenteric and celiac axis are patent. There is likely stenosis of the left renal artery with poor vascularity within the left kidney compared to the right. Left renal atrophy appears to be present. Studies performed for evaluation of the aorta. Given this limitation liver spleen pancreas and adrena l glands appear within normal limits. Gallbladder is surgically absent. The inferior vena cava is unr emarkable. Left kidney is atrophic at the superior pole. The inferior pole has a more normal appearan ce. Diverticuli are present within the distal colon. Loops of bowel without contrast appear otherwise unr emarkable. Uterus is unremarkable. Adnexal regions are clear. Urinary bladder appears unremarkable. The appendix is visualized is normal. No hydronephrosis is evident. No renal stones are identified. IMPRESSION: 1. MILD FUSIFORM PROMINENCE MID ABDOMINAL AORTA WITH AN AP DIAMETER OF 2.6 CM. 2. SUPERIOR POLE LEFT KIDNEY APPEARS ATROPHIC WITH DIMINISHED CONTRAST SUGGESTING SEVERE STENOSIS. TH E INFERIOR POLE IS MORE NORMAL APPEARANCE ALTHOUGH IS ATROPHIC COMPARED TO THE RIGHT KIDNEY.
== END | disposition home or self-care (01) ==
LOC: RADCTMAIN 14:55
PROVIDERS: ATTEND Internal Medicine Interventional Cardiology
DX: I71.4 Abdominal aortic aneurysm, without rupture (principal)
CPT/HCPCS: 82565; 84520; 74175; 36415; Q9967

== ENCOUNTER 2018-06-26 05:54 | Day surgery (SDC) | payer MEDICARE, OTHER ==
[2018-06-25 10:20] VITALS: BMI 29.0
[2018-06-26] MEDS ORDERED: SODIUM CHLORIDE 0.9% 1,000 ML IV SCH ×2 (06:13→07:45)
[2018-06-26 06:30] VITALS: TEMP 98
[2018-06-26] MEDS: BENZOCAINE SPRAY 1 CAN MUCOUS MEM ONE ×2 (07:20→07:22)
[2018-06-26] MEDS ORDERED: PROPOFOL 10 MG/ML 20 ML VIAL IV ONE ×2 (07:23)
--- NOTE | 2018-06-26 07:52 | ECHOT ---
TRANSESOPHAGEAL ECHOCARDIOGRAM INDICATION: Evaluation of left atrial appendage. PROCEDURE: After explaining the procedure to the patient, its risks and the complications, her blood pressure, heart rate, O2 saturation were monitored. She received sedation per anesthesia department. The probe was introduced in the esophagus. Images were obtained. Following that, the probe was removed. There was no immediate complication. FINDINGS: Left atrial size is mildly dilated. Left atrial appendage is normal. Spontaneous contrast was noted. The aortic valve is a tricuspid valve with fibrocalcific changes and preserved opening. The mitral valve and tricuspid valve appears to be normal. Descending thoracic aorta appears to be normal. Contrast bubble study revealed no shunting across the interatrial septum. No pericardial effusion was noted. Doppler pulse wave and color Doppler obtained and revealed mild mitral, tricuspid and aortic regurgitation. There was no shunting by color Doppler study. CONCLUSION: 1. Normal left ventricular size and systolic function. 2. No evidence of thrombus in the left atrial appendage with spontaneous contrast. 3. Aortic sclerosis with no evident stenosis. 4. Mild mitral, aortic and tricuspid regurgitation. 5. No shunting across the interatrial septum. MMODL / IJN: [id number] /
--- NOTE | 2018-06-26 07:55 | CE ---
CARDIAC ELECTROPHYSIOLOGY REPORT CARDIOVERSION PROCEDURE NOTE: INDICATION: Atrial fibrillation. PROCEDURE: After explaining the procedure to the patient as well as risks and the complications and after performing transesophageal echocardiogram and obtaining sedated state, a biphasic synchronized cardioversion using 200 joules was performed with spiritism of normal sinus rhythm. There was no immediate complication. FLORES / FILIPE: [id number] /
[2018-06-26 08:47] VITALS: RESP 18
[2018-06-26] MEDS ORDERED: NON-FORMULARY DRUG (Atenolol [Tenormin] 100 MG) PO SCH (09:00)
[2018-06-26] MEDS ORDERED: LEVOTHYROXINE 112 MCG TAB PO SCH (09:00)
[2018-06-26] MEDS ORDERED: NON-FORMULARY DRUG (B Complex-Vit C-Vit E-Zinc 1 TAB) PO SCH (09:00)
[2018-06-26] MEDS ORDERED: SPIRONOLACTONE 25 MG TAB PO SCH (09:00)
[2018-06-26] MEDS ORDERED: NON-FORMULARY DRUG (Biotin [Biotin] 5 MG) PO SCH (09:00)
[2018-06-26] MEDS ORDERED: CHOLECALCIFEROL 1,000 UNIT TAB PO SCH (09:00)
[2018-06-26] MEDS ORDERED: CALCIUM PO SCH (09:00)
[2018-06-26] MEDS ORDERED: APIXABAN 5 MG TAB PO SCH (09:00)
[2018-06-26] MEDS ORDERED: LISINOPRIL 40 MG PO SCH (09:00)
[2018-06-26] MEDS ORDERED: ATORVASTATIN 40 MG TAB PO SCH (09:00)
[2018-06-26] MEDS ORDERED: FUROSEMIDE 20 MG TAB PO SCH (09:00)
[2018-06-26 09:11] VITALS: BP 134/76; PULSE 54
[2018-06-27] MEDS ORDERED: NON-FORMULARY DRUG (Omeprazole 20 MG) PO SCH (07:30)
[2018-06-27] MEDS ORDERED: FERROUS SULFATE 325 MG TAB PO SCH (07:41)
== END 2018-06-26 09:18 | disposition home or self-care (01) ==
LOC: CATHCVL 05:54
PROVIDERS: ATTEND Internal Medicine Interventional Cardiology
DX: I48.1 Persistent atrial fibrillation (principal); I25.10 Atherosclerotic heart disease of native coronary artery without angina pectoris; I10 Essential (primary) hypertension; I73.9 Peripheral vascular disease, unspecified; I71.4 Abdominal aortic aneurysm, without rupture; E78.2 Mixed hyperlipidemia; I70.0 Atherosclerosis of aorta; I08.3 Combined rheumatic disorders of mitral, aortic and tricuspid valves; Z88.0 Allergy status to penicillin; Z87.891 Personal history of nicotine dependence; E07.9 Disorder of thyroid, unspecified; Z82.49 Family history of ischemic heart disease and other diseases of the circulatory system; Z79.01 Long term (current) use of anticoagulants; Z79.899 Other long term (current) drug therapy
CPT/HCPCS: 93312; 93320; 93325; 92960; J2704; 93005

== ENCOUNTER → 2018-09-11 | Outpatient (CLI) | payer MEDICARE, OTHER ==
[2018-09-11 16:59] LABS: Albumin 4.2 g/dL (3.80-4.90); Albumin/Globulin Ratio 2.1 (1.20-2.10); Anion Gap 8.6 mmol/L (4.00-12.00); Calcium 9.3 mg/dL (8.7-10.3); Carbon Dioxide 29.4 mmol/L (21.6-31.8); LDL Cholesterol,Calculated 74.2 mg/dL (0.0-131.0); Potassium 4.4 mmol/L (3.5-5.5); Total Bilirubin 0.6 mg/dL (0.3-1.2); Total Protein 6.2 g/dL (6.2-8.2); VLDL Calculation 18.8 mg/dL (5.00-40.00)
== END | disposition home or self-care (01) ==
LOC: LABWHC1 08:12
PROVIDERS: ATTEND Internal Medicine Interventional Cardiology
DX: E78.2 Mixed hyperlipidemia (principal)
CPT/HCPCS: 36415; 80053; 80061

== ENCOUNTER → 2018-10-11 | Outpatient (CLI) | payer MEDICARE, OTHER ==
--- NOTE | 2018-10-12 10:33 | MM ---
Reason for exam: screening (asymptomatic). Last mammogram was performed 1 year and 1 month ago. History: Patient is postmenopausal. Benign left mammotome panel of the left breast, October 07, 2005. Physical Findings: A clinical breast exam by your physician is recommended on an annual basis and results should be correlated with mammographic findings. MG 3D Screening Mammo W/Cad Bilateral CC and MLO view(s) were taken. Prior study comparison: September 21, 2017, bilateral MG 3d screening mammo w/cad. September 21, 2016, bilateral MG 3d screening mammo w/cad. There are scattered fibroglandular densities. Stable benign calcifications. Previous mammotome biopsy in the left breast. There is no discrete abnormality. No significant changes when compared with prior studies. ASSESSMENT: Benign, BI-RAD 2 RECOMMENDATION: Routine screening mammogram of both breasts in 1 year.
== END | disposition home or self-care (01) ==
LOC: RADMAMWWP 13:12
PROVIDERS: ATTEND Family Medicine
DX: Z12.31 Encounter for screening mammogram for malignant neoplasm of breast (principal)
CPT/HCPCS: 77063; 77067

== ENCOUNTER → 2018-12-17 | Outpatient (CLI) | payer MEDICARE, OTHER ==
--- NOTE | 2018-12-17 19:23 | CT ---
EXAMINATION TYPE: CT abdomen pelvis w con DATE OF EXAM: 12/17/2018 HISTORY: abdominal pain unspecified per order. CT DLP: 1092.2mGycm Automated Exposure Control for Dose Reduction was Utilized. CONTRAST: CT scan of the abdomen and pelvis is performed with oral and with IV Contrast, patient injected with 80cc mL of Isovue 300. COMPARISON: CTA abdomen June 15, 2018 FINDINGS: LUNG BASES: There is persistent posterior left basilar linear scarring and/or atelectasis. There is n ew lingular linear scarring and/or atelectasis near diaphragm. LIVER/GB: Cholecystectomy clips are redemonstrated. PANCREAS: No significant abnormality is seen. SPLEEN: No significant abnormality is seen. ADRENALS: No significant abnormality is seen. KIDNEYS: Asymmetric atrophy and cortical thinning of left kidney is redemonstrated. There are a few s imple appearing thin-walled cysts again seen scattered throughout the left kidney. Symmetric cortical medullary uptake and excretion from both kidneys is present. BOWEL: The oral contrast reaches level of the proximal transverse colon. Normal-appearing contrast fi lled appendix is seen ascending from cecum. There is no suspicious small or large bowel dilatation. D iverticula in the left and sigmoid colon are redemonstrated. There is no convincing CT evidence for a cute diverticulitis. UTERUS/ADNEXA: Anteverted uterus is present LYMPH NODES: No greater than 1cm abdominal or pelvic lymph nodes are appreciated. OSSEOUS STRUCTURES: There is moderate to severe disc space narrowing and vacuum disc phenomenon in th e lumbar spine L4-L5 and L5-S1 levels. Moderate disc space narrowing with vacuum disc phenomenon L1-L 2 level is seen. Bilateral pars defects L5 level with slight spondylolisthesis is noted. OTHER: Moderate calcified plaque of aorta extends into branch vessels. IMPRESSION: No significant new or acute finding is seen to account for patient's clinical symptoms. N o bowel obstruction is present.
== END | disposition home or self-care (01) ==
LOC: RADCTMAIN 16:47
PROVIDERS: ATTEND Family Medicine
DX: R10.9 Unspecified abdominal pain (principal)
CPT/HCPCS: 82565; 84520; 74177; 36415; Q9967

== ENCOUNTER → 2019-01-16 | Outpatient (CLI) | payer MEDICARE, OTHER ==
--- NOTE | 2019-01-17 07:15 | US ---
EXAMINATION TYPE: US pelvic complete DATE OF EXAM: 01/16/2019 COMPARISON: CT CLINICAL HISTORY: R10.2 Pelvic Pain. Patient denies pelvic pain, has back pain, and was told had righ t ovarian cyst by MRI spine at [facility] after CT here TECHNIQUE: Transvaginal (TV) and Transabdominal (TA) . Transabdominal sonographic images of the pel vis were acquired. Transvaginal sonographic images were medically necessary to better assess the fol lowing anatomy ovary. Date of LMP: years ago EXAM MEASUREMENTS: Uterus: 5.0 x 2.7 x 1.8 cm Endometrial Stripe: 0.4 cm Right Ovary: 3.5 x 3.0 x 2.4 cm Left Ovary: 2.1 x 0.8 x 1.2 cm 1. Uterus: Anteverted ; multiple calcifications seen in myometrium especially upper uterus; round ma ss with hyperechoic borders = 0.6x 0.7 x 0.6cm noted in upper uterus may be uterine fibroid 2. Endometrium: thickness is wnl for post menopausal patient 3. Right Ovary: enlarged ovary with large simple cyst = 3.5 x 1.8 x 2.4cm 4. Left Ovary: wnl Spectral, color and waveform Doppler imaging shows good arterial and venous flow within the ovaries ; there is no evidence for ovarian torsion. 5. Bilateral Adnexa: wnl 6. Posterior cul-de-sac: wnl IMPRESSION: There are multiple calcifications within the myometrium with a round mass measuring 7 mm which is nonspecific but most likely the basis of a uterine fibroid. Correlate clinically. Also appea rs to be a 3.5 cm right ovarian cyst. This is somewhat atypical for the patient's demographics and sh ould be correlated clinically. Cystic neoplasms in the differential diagnosis.
== END | disposition home or self-care (01) ==
LOC: RADUSWWP 14:47
PROVIDERS: ATTEND Family Medicine
DX: N85.8 Other specified noninflammatory disorders of uterus (principal)
CPT/HCPCS: 76830; 76856

== ENCOUNTER → 2019-01-21 | Outpatient (CLI) | payer MEDICARE, OTHER ==
[2019-01-21 20:34] LABS: LDL Cholesterol,Calculated 95.6 mg/dL (0.0-131.0); VLDL Calculation 16.4 mg/dL (5.00-40.00)
== END ==
LOC: LABWHC1 12:25
PROVIDERS: ATTEND Nurse Practitioner Adult Health
DX: E78.2 Mixed hyperlipidemia (principal)
CPT/HCPCS: 36415; 80061; 84450; 84460

== ENCOUNTER → 2019-02-19 | Outpatient (CLI) | payer MEDICARE, OTHER | END | disposition home or self-care (01) | LOC: LABWHC1 12:24 | PROVIDERS: ATTEND Obstetrics & Gynecology | DX: R19.00 Intra-abdominal and pelvic swelling, mass and lump, unspecified site (principal); N83.209 Unspecified ovarian cyst, unspecified side | CPT/HCPCS: 36415; 86304 ==

== ENCOUNTER → 2019-03-28 | Outpatient (CLI) | payer MEDICARE, OTHER ==
--- NOTE | 2019-03-28 15:44 | US ---
EXAMINATION TYPE: US pelvis complete transvag DATE OF EXAM: 03/28/2019 COMPARISON: Ultrasound dated 01/16/[address] 12/17/2018 CLINICAL HISTORY: N83.0 F/U right ovarian cyst. TECHNIQUE: Transvaginal (TV) and Transabdominal (TA) . Transabdominal sonographic images of the pel vis were acquired. Transvaginal sonographic images were medically necessary to better assess the fol lowing anatomy: Bladder not full. Date of LMP: 25+ years ago EXAM MEASUREMENTS: Uterus: 5.9 x 3.1 4.1 cm Endometrial Stripe: 0.2 cm Right Ovary: 2.9 x 2.6 x 2.6 cm Left Ovary: not identified 1. Uterus: Anteverted Heterogenous myometrium, with scattered echogenic foci, likely indicative o f leiomyomas 2. Endometrium: wnl 3. Right Ovary: 2.3 x 1.9 x 1.9 cm cyst on right ovary 4. Left Ovary: not identified, most likely due to atrophy 5. Bilateral Adnexa: wnl 6. Posterior cul-de-sac: no free fluid IMPRESSION: Right ovarian cystic focus is stable
== END | disposition home or self-care (01) ==
LOC: RADUSWWP 13:26
PROVIDERS: ATTEND Obstetrics & Gynecology
DX: N83.201 Unspecified ovarian cyst, right side (principal)
CPT/HCPCS: 76830; 76856

== ENCOUNTER → 2019-08-12 | Outpatient (CLI) | payer MEDICARE, OTHER ==
[2019-08-12 17:36] LABS: African American GFR (CKD) 62.1 (60.0-200.0); Albumin 4.3 g/dL (3.80-4.90); Albumin/Globulin Ratio 2.05 (1.60-3.17); Anion Gap 6.4 mmol/L (4.00-12.00); Calcium 9.3 mg/dL (8.7-10.3); Carbon Dioxide 30.6 mmol/L (21.6-31.8); Chol/HDL Ratio 3.32; Globulin 2.1 g/dL (1.6-3.3); LDL Cholesterol,Calculated 91.6 mg/dL (0.0-131.0); Potassium 4.4 mmol/L (3.5-5.5); Total Bilirubin 0.7 mg/dL (0.3-1.2); Total Protein 6.4 g/dL (6.2-8.2); VLDL Calculation 24.4 mg/dL (5.00-40.00)
== END | disposition home or self-care (01) ==
LOC: LABWHC1 08:21
PROVIDERS: ATTEND Internal Medicine Interventional Cardiology
DX: E78.2 Mixed hyperlipidemia (principal)
CPT/HCPCS: 36415; 80053; 80061

== ENCOUNTER → 2020-04-15 | Outpatient (CLI) | payer MEDICARE, OTHER ==
[2020-04-15 23:25] LABS: Chol/HDL Ratio 3.45; LDL Cholesterol,Calculated 105.2 mg/dL (0.0-131.0); VLDL Calculation 19.8 mg/dL (5.00-40.00)
== END | disposition home or self-care (01) ==
LOC: LABWHC1 12:51
PROVIDERS: ATTEND Nurse Practitioner Adult Health
DX: E78.2 Mixed hyperlipidemia (principal)
CPT/HCPCS: 36415; 80061

== ENCOUNTER → 2020-10-22 | Outpatient (CLI) | payer MEDICARE ==
[2020-10-22 15:41] LABS: Albumin 4.3 g/dL (3.80-4.90); Albumin/Globulin Ratio 1.95 (1.60-3.17); Anion Gap 9.2 mmol/L (4.00-12.00); BUN/Creat Ratio 29.29 Ratio (12.00-20.00); Calcium 9.7 mg/dL (8.7-10.3); Carbon Dioxide 26.8 mmol/L (21.6-31.8); Chol/HDL Ratio 3.06; Globulin 2.2 g/dL (1.6-3.3); LDL Cholesterol,Calculated 81.2 mg/dL (0.0-131.0); Non-African American GFR(CKD) 35.4 (60.0-200.0); Potassium 4.6 mmol/L (3.5-5.5); Total Bilirubin 0.4 mg/dL (0.2-1.2); Total Protein 6.5 g/dL (6.2-8.2); VLDL Calculation 15.8 mg/dL (5.00-40.00)
== END | disposition home or self-care (01) ==
LOC: LABWHC1 09:56
PROVIDERS: ATTEND Internal Medicine Interventional Cardiology
DX: E78.2 Mixed hyperlipidemia (principal)
CPT/HCPCS: 36415; 80053; 80061

== ENCOUNTER → 2020-10-29 | Outpatient (CLI) | payer MEDICARE ==
[2020-10-30 04:18] LABS: African American GFR (CKD) 49.4 (60.0-200.0); Anion Gap 13.5 mmol/L (4.00-12.00); BUN/Creat Ratio 21.67 Ratio (12.00-20.00); Calcium 9.8 mg/dL (8.7-10.3); Carbon Dioxide 25.5 mmol/L (21.6-31.8); Non-African American GFR(CKD) 42.6 (60.0-200.0); Potassium 4.3 mmol/L (3.5-5.5)
== END | disposition home or self-care (01) ==
LOC: LABWHC1 16:11
PROVIDERS: ATTEND Family Medicine
DX: N28.9 Disorder of kidney and ureter, unspecified (principal)
CPT/HCPCS: 36415; 80048

== ENCOUNTER → 2021-02-05 | Outpatient (CLI) | payer MEDICARE ==
--- NOTE | 2021-02-08 11:34 | MM ---
Reason for exam: screening (asymptomatic). Last mammogram was performed 2 years and 4 months ago. History: Patient is postmenopausal. Benign left mammotome panel of the left breast, October 07, 2005. Physical Findings: A clinical breast exam by your physician is recommended on an annual basis and results should be correlated with mammographic findings. MG 3D Screening Mammo W/Cad Bilateral CC and MLO view(s) were taken. Prior study comparison: October 11, 2018, bilateral MG 3d screening mammo w/cad. September 21, 2017, bilateral MG 3d screening mammo w/cad. There are benign appearing round linear calcifications in the left breast. Previous mammotome biopsy in the left breast. There is no discrete abnormality. ASSESSMENT: Benign, BI-RAD 2 RECOMMENDATION: Routine screening mammogram of both breasts in 1 year.
== END | disposition home or self-care (01) ==
LOC: RADMAMWWP 14:22
PROVIDERS: ATTEND Family Medicine
DX: Z12.31 Encounter for screening mammogram for malignant neoplasm of breast (principal)
CPT/HCPCS: 77063; 77067

== ENCOUNTER → 2021-03-25 | Outpatient (CLI) | payer MEDICARE ==
[2021-03-25 18:10] LABS: African American GFR (CKD) 61.6 (60.0-200.0); Albumin 4.3 g/dL (3.80-4.90); Albumin/Globulin Ratio 1.65 (1.60-3.17); Calcium 9.2 mg/dL (8.7-10.3); Chol/HDL Ratio 3.12; Globulin 2.6 g/dL (1.6-3.3); LDL Cholesterol,Calculated 92.8 mg/dL (0.0-131.0); Non-African American GFR(CKD) 53.2 (60.0-200.0); Total Bilirubin 0.6 mg/dL (0.3-1.2); Total Protein 6.9 g/dL (6.2-8.2); VLDL Calculation 17.2 mg/dL (5.00-40.00)
== END | disposition home or self-care (01) ==
LOC: LABWHC1 09:27
PROVIDERS: ATTEND Internal Medicine Interventional Cardiology
DX: E78.2 Mixed hyperlipidemia (principal)
CPT/HCPCS: 36415; 80053; 80061

== ENCOUNTER 2021-08-04 16:08 | Emergency (ER) | payer MEDICARE ==
[2021-08-04 16:18] VITALS: TEMP 98.8
--- NOTE | 2021-08-04 16:18 | ED ---
General Adult HPI - General Stated complaint: Covid Test Time Seen by Provider: 08/04/21 16:14 - History of Present Illness Initial comments: Dictation was produced using [employer] dictation software. please excuse any grammatical, word or spelling errors. Chief Complaint: 80-year-old female presents for cold symptoms History of Present Illness: Patient is an 80-year-old female she has no significant past medical history. Patient's just tested positive for Hester virus. He will be admitted to the hospital. Patient has had URI symptoms for the last 6 days. She did receive her vaccine earlier this year. She has runny nose. No sore throat. No shortness of breath. Denies any fevers. No cough. The ROS documented in this emergency department record has been reviewed and confirmed by me. Those systems with pertinent positive or negative responses have been documented in the HPI. All other systems are other negative and/or noncontributory. PHYSICAL EXAM: General Impression: Alert and oriented x3, not in acute distress HEENT: Normocephalic atraumatic, extra-ocular movements intact, pupils equal and reactive to light bilaterally, mucous membranes moist. Cardiovascular: Heart regular rate and rhythm Chest: Able to complete full sentences, no retractions, no tachypnea Musculoskeletal: Pulses present and equal in all extremities, no peripheral edema Motor: no focal deficits noted Neurological: CN II-XII grossly intact, no focal motor or sensory deficits noted Skin: Intact with no visualized rashes Psych: Normal affect and mood ED course: 80-year-old female requesting coronavirus testing. She is vac cinated. Her tested positive. been symptomatic for 6 days. Vital signs upon arrival are within acceptable limits. Patient not hypoxic. She showed no signs of respiratory distress. Patient positive for coronavirus. Patient is agreeable for monoclonal antibody administration.Patient given monoclonal antibodies and observe the emergency department. Patient had no adverse issues. Patient be discharged. - Related Data Home Medications Medication Instructions Recorded Confirmed B Complex-Vit C-Vit E-Zinc [Z-Bec] 1 tab PO DAILY 06/25/15 06/26/18 Biotin 5 mg PO DAILY 06/25/15 06/26/18 Cholecalciferol [Vitamin D3 (25 1,000 units PO DAILY 06/25/15 06/26/18 Mcg = 1000 Iu)] Ferrous Sulfate [Iron (65 MG 325 mg PO MOWEFR 06/25/15 06/26/18 Elemental)] Levothyroxine Sodium [Synthroid] 112 mcg PO QAM 06/25/15 06/26/18 lisinopriL [Zestril] 40 mg PO DAILY 06/25/15 06/26/18 Atenolol [Tenormin] 100 mg PO BID 02/27/17 06/26/18 Omeprazole [PriLOSEC] 20 mg PO AC-BRKFST 09/26/17 06/26/18 Calcium Slow Release 1200mg 1 tab PO DAILY 05/29/18 06/26/18 Previous Rx's Medication Instructions Recorded Apixaban [Eliquis] 5 mg PO BID #180 tab 05/31/18 Atorvastatin [Lipitor] 40 mg PO DAILY #40 tab 05/31/18 Furosemide [Lasix] 20 mg PO BID@0900,1600 #180 tab 05/31/18 Spironolactone [Aldactone] 25 mg PO DAILY #90 tab 05/31/18 Allergies Allergy/AdvReac Type Severity Reaction Status Date / Time Penicillins Allergy Rash/Hives Verified 08/04/21 16:21 Review of Systems ROS Statement: Those systems with pertinent positive or pertinent negative responses have been documented in the HPI. ROS Other: All systems not noted in ROS Statement are negative. Past Medical History Past Medical History: Hyperlipidemia, Hypertension, Thyroid Disorder Additional Past Medical History / Comment(s): OCC. IRREGULAR HEART BEAT ( TOLD TO STOP CAFFEINE). , Bladder LEAKAGE. History of Any Multi-Drug Resistant Organisms: None Reported Past Surgical History: Cholecystectomy, Orthopedic Surgery Additional Past Surgical History / Comment(s): AD CARPAL TUNNEL.; Colonoscopy/ EGD, rt knee arthroscopy Past Anesthesia/Blood Transfusion Reactions: No Reported Reaction Past Psychological History: No Psychological Hx Reported Additional Psychological History / Comment(s): pt is independant, lives with spouse in own home. drives. no home care services, no medical equipment Past Alcohol Use History: Occasional Additional Past Alcohol Use History / Comment(s): QUIT SMOKING 1995,STARTED SMOKING 1956. SMOKED < 1PPD. SMOKED APPROX 38 YEARS. Past Drug Use History: None Reported - Past Family History Mother Family Medical History: Coronary Artery Disease (CAD) Additional Family Medical History / Comment(s): CABG IN HER 80'S Father Family Medical History: Chest Pain / Angina Additional Family Medical History / Comment(s): THIEN AT AGE 57 Course Vital Signs 08/04/21 16:12 Temperature 98.8 F Pulse Rate 61 Respiratory 18 Rate Blood Pressure 167/89 O2 Sat by Pulse 95 Oximetry Medical Decision Making - Lab Data Lab Results 08/04/21 Range/Units Unknown Coronavirus (PCR) Detected A (Not Detectd) Disposition Clinical Impression: Coronavirus infection Disposition: HOME SELF-CARE Condition: Good Instructions (If sedation given, give patient instructions): Coronavirus Disease 2019 (COVID-19) Is patient prescribed a controlled substance at d/c from ED?: No Referrals: Roxanna Marino MD [Primary Care Provider] - 1-2 days
[2021-08-04] MEDS ORDERED: SODIUM CHLORIDE 0.9% 50 ML IVPB ONE (17:00)
[2021-08-04] MEDS ORDERED: CASIRIVIMAB (REGN10933) (EUA) 600 MG, IMDEVIMAB (REGN10987) (EUA) 600 MG in SODIUM CHLO... IVPB ONE (17:30)
[2021-08-04 18:33] VITALS: RESP 16
[2021-08-04 19:02] VITALS: BP 134/82; PULSE 64
== END 2021-08-04 19:02 | disposition home or self-care (01) ==
LOC: EC 16:08
DX: U07.1 COVID-19 (principal); I10 Essential (primary) hypertension; E78.5 Hyperlipidemia, unspecified; E07.9 Disorder of thyroid, unspecified; Z79.01 Long term (current) use of anticoagulants; Z88.0 Allergy status to penicillin; Z90.49 Acquired absence of other specified parts of digestive tract; Z87.891 Personal history of nicotine dependence
CPT/HCPCS: 99283; 96365; 87635; Q0243

== ENCOUNTER → 2021-10-13 | Outpatient (CLI) | payer MEDICARE ==
[2021-10-13 17:14] LABS: ALT 19 U/L (8-44); AST 19 U/L (13-35); African American GFR (CKD) 44.6 (60.0-200.0); Albumin 4.5 g/dL (3.8-4.9); Albumin/Globulin Ratio 1.73 (1.60-3.17); Alkaline Phosphatase 78 U/L (41-126); Blood Urea Nitrogen 24.7 mg/dL (9.0-27.0); Calcium 9.6 mg/dL (8.7-10.3); Chloride 102 mmol/L (96-109); Chol/HDL Ratio 2.72 Ratio; Globulin 2.6 g/dL (1.6-3.3); Glucose 119 mg/dL (70-110); LDL Cholesterol,Calculated 78.3 mg/dL (0.0-131.0); Non-African American GFR(CKD) 38.4 (60.0-200.0); Potassium 4.9 mmol/L (3.5-5.5); Sodium 140 mmol/L (135-145); Total Protein 7.1 g/dL (6.2-8.2); VLDL Calculation 18.42 mg/dL (5.00-40.00)
== END | disposition home or self-care (01) ==
LOC: LABWHC1 09:50
PROVIDERS: ATTEND Internal Medicine Interventional Cardiology
DX: E78.2 Mixed hyperlipidemia (principal)
CPT/HCPCS: 36415; 80053; 80061

== ENCOUNTER → 2021-11-02 | Outpatient (CLI) | payer MEDICARE ==
[2021-11-02 18:06] LABS: African American GFR (CKD) 44.6 (60.0-200.0); Anion Gap 10.8 mmol/L (10.00-18.00); Blood Urea Nitrogen 29.4 mg/dL (9.0-27.0); Carbon Dioxide 26.2 mmol/L (20.0-27.5); Non-African American GFR(CKD) 38.4 (60.0-200.0); Potassium 4.5 mmol/L (3.5-5.5)
== END | disposition home or self-care (01) ==
LOC: LABWHC1 12:09
PROVIDERS: ATTEND Internal Medicine Interventional Cardiology
DX: I10 Essential (primary) hypertension (principal)
CPT/HCPCS: 36415; 80051; 82565; 84520

== ENCOUNTER → 2021-11-17 | Outpatient (CLI) | payer MEDICARE ==
[2021-11-17 23:30] LABS: African American GFR (CKD) 57.7 (60.0-200.0); Albumin 4.1 g/dL (3.8-4.9); Albumin/Globulin Ratio 1.36 (1.60-3.17); Anion Gap 11.6 mmol/L (10.00-18.00); BUN/Creat Ratio 26.38 Ratio (12.00-20.00); Blood Urea Nitrogen 27.7 mg/dL (9.0-27.0); Calcium 9.4 mg/dL (8.7-10.3); Non-African American GFR(CKD) 49.8 (60.0-200.0); Potassium 4.4 mmol/L (3.5-5.5); Total Bilirubin 0.4 mg/dL (0.30-1.20); Total Protein 7.1 g/dL (6.2-8.2)
== END | disposition home or self-care (01) ==
LOC: LABWHC1 14:52
PROVIDERS: ATTEND Family Medicine
DX: E03.9 Hypothyroidism, unspecified (principal)
CPT/HCPCS: 36415; 80053; 84439; 84443

== ENCOUNTER → 2022-01-10 | Outpatient (CLI) | payer MEDICARE ==
[2022-01-10 16:06] LABS: African American GFR (CKD) 61.2 (60.0-200.0); Anion Gap 19.8 mmol/L (10.00-18.00); BUN/Creat Ratio 21.8 Ratio (12.00-20.00); Blood Urea Nitrogen 21.8 mg/dL (9.0-27.0); Calcium 9.9 mg/dL (8.7-10.3); Carbon Dioxide 18.2 mmol/L (20.0-27.5); Non-African American GFR(CKD) 52.8 (60.0-200.0); Potassium 4.2 mmol/L (3.5-5.5)
== END | disposition home or self-care (01) ==
LOC: LABWHC1 09:11
PROVIDERS: ATTEND Family Medicine
DX: I10 Essential (primary) hypertension (principal)
CPT/HCPCS: 36415; 80048

== ENCOUNTER → 2022-02-22 | Outpatient (CLI) | payer MEDICARE ==
[2022-02-22 23:40] LABS: T4, Free (Free Thyroxine) 2.04 ng/dL (0.800-1.800)
== END | disposition home or self-care (01) ==
LOC: LABWHC1 14:29
PROVIDERS: ATTEND Family Medicine
DX: E03.9 Hypothyroidism, unspecified (principal)
CPT/HCPCS: 36415; 84439; 84443

== ENCOUNTER → 2022-04-26 | Outpatient (CLI) | payer MEDICARE ==
[2022-04-26 14:35] LABS: ALT 20 U/L (8-44); AST 21 U/L (13-35); African American GFR (CKD) 46.3 (60.0-200.0); Albumin 4.4 g/dL (3.8-4.9); Albumin/Globulin Ratio 1.78 (1.60-3.17); Alkaline Phosphatase 78 U/L (41-126); BUN/Creat Ratio 26.51 Ratio (12.00-20.00); Blood Urea Nitrogen 33.4 mg/dL (9.0-27.0); Calcium 9.8 mg/dL (8.7-10.3); Carbon Dioxide 27.6 mmol/L (20.0-27.5); Chloride 102 mmol/L (96-109); Chol/HDL Ratio 3.22 Ratio; Globulin 2.5 g/dL (1.6-3.3); Glucose 106 mg/dL (70-110); LDL Cholesterol,Calculated 91.9 mg/dL (0.0-131.0); Non-African American GFR(CKD) 39.9 (60.0-200.0); Potassium 4.7 mmol/L (3.5-5.5); Sodium 141 mmol/L (135-145); Total Protein 6.8 g/dL (6.2-8.2); VLDL Calculation 19.12 mg/dL (5.00-40.00)
== END | disposition home or self-care (01) ==
LOC: LABWHC1 07:48
PROVIDERS: ATTEND Internal Medicine Interventional Cardiology
DX: E78.2 Mixed hyperlipidemia (principal)
CPT/HCPCS: 36415; 80053; 80061

== ENCOUNTER → 2022-09-06 | Outpatient (CLI) | payer MEDICARE ==
--- NOTE | 2022-09-07 18:08 | MM ---
Reason for Exam: Screening (asymptomatic). Last mammogram was performed 1 year(s) and 7 month(s) ago. Patient History: Menarche at age 13. First Full-Term at age 25. Postmenopausal. 10/07/2005, Benign Core Biopsy on the left side. Risk Values: Hailey 5 year model risk: 2.1%. NCI Lifetime model risk: 2.7%. Prior Study Comparison: 09/21/2017 Bilateral Screening Mammogram, [facility]. 10/11/2018 Bilateral Screening Mammogram, [facility]. 02/05/2021 Bilateral Screening Mammogram, [facility]. Tissue Density: There are scattered fibroglandular densities. Findings: Analyzed By CAD. Subareolar densities have an unchanged configuration. Microclip left breast from prior biopsy. There is no suspicious group of microcalcifications or new suspicious mass in either breast. Overall Assessment: Benign, BI-RAD 2 Management: Screening Mammogram of both breasts in 1 year. 1. Patient should continue monthly self breast exams. 2. A clinical breast exam by your physician is recommended on an annual basis. 3. This exam should not preclude additional follow-up of suspicious palpable abnormalities. Electronically signed and approved by: Arian Barahona M.D. Radiologist
== END | disposition home or self-care (01) ==
LOC: RADMAMWWP 15:26
PROVIDERS: ATTEND Family Medicine
DX: Z12.31 Encounter for screening mammogram for malignant neoplasm of breast (principal); Z78.0 Asymptomatic menopausal state
CPT/HCPCS: 77063; 77067

== ENCOUNTER → 2022-11-01 | Outpatient (CLI) | payer MEDICARE ==
[2022-11-01 15:36] LABS: Basophils # (A) 0.03 X 10*3/uL (0.00-0.10); Basophils % (A) 0.4 %; Eosinophils # (A) 0.21 X 10*3/uL (0.04-0.35); Eosinophils % (A) 2.9 %; HCT 43.7 % (37.2-46.3); HGB 13.5 g/dL (12.0-15.0); Immature Grans, Automated 0.1 %; Lymphocytes % (A) 22.3 %; MCH 28.8 pg (27.0-32.0); MCHC 30.9 g/dL (32.0-37.0); MCV 93.2 fL (80.0-97.0); Mean Platelet Volume 13.3 fL (9.5-12.2); Monocytes # (A) 0.74 X 10*3/uL (0.20-1.00); Monocytes % (A) 10.3 %; NRBC Per 100 WBC 0 /100 WBCS (0.0-0.0); Neutrophils # (A) 4.58 X 10*3/uL (1.80-7.70); Platelet Count 145 X 10*3/uL (140-440); RBC 4.69 X 10*6/uL (4.10-5.20); RDW 14.8 % (11.5-14.5); WBC 7.17 X 10*3/uL (4.50-10.00)
[2022-11-01 16:32] LABS: ALT 40 U/L (8-44); AST 30 U/L (13-35); African American GFR (CKD) 54.1 (60.0-200.0); Albumin 4.4 g/dL (3.8-4.9); Albumin/Globulin Ratio 1.57 (1.60-3.17); Alkaline Phosphatase 73 U/L (41-126); BUN/Creat Ratio 21.09 Ratio (12.00-20.00); Blood Urea Nitrogen 23.2 mg/dL (9.0-27.0); Calcium 9.8 mg/dL (8.7-10.3); Carbon Dioxide 27.2 mmol/L (20.0-27.5); Chloride 104 mmol/L (96-109); Chol/HDL Ratio 2.53 Ratio; Globulin 2.8 g/dL (1.6-3.3); Glucose 111 mg/dL (70-110); LDL Cholesterol,Calculated 59.8 mg/dL (0.0-131.0); Non-African American GFR(CKD) 46.7 (60.0-200.0); Potassium 5.2 mmol/L (3.5-5.5); Sodium 141 mmol/L (135-145); Total Protein 7.2 g/dL (6.2-8.2)
== END | disposition home or self-care (01) ==
LOC: LABWHC1 09:42
PROVIDERS: ATTEND Family Medicine
DX: I12.9 Hypertensive chronic kidney disease with stage 1 through stage 4 chronic kidney disease, or unspecified chronic kidney disease (principal); E03.9 Hypothyroidism, unspecified; E78.2 Mixed hyperlipidemia; N18.9 Chronic kidney disease, unspecified
CPT/HCPCS: 36415; 80053; 80061; 84439; 84443; 85025

== ENCOUNTER → 2023-05-29 | Outpatient (CLI) | payer MEDICARE ==
[2023-05-29 16:54] LABS: ALT 80 U/L (8-44); AST 43 U/L (13-35); Chol/HDL Ratio 2.44 Ratio; LDL Cholesterol,Calculated 59.8 mg/dL (0.0-131.0); VLDL Calculation 13.38 mg/dL (5.00-40.00)
== END | disposition home or self-care (01) ==
LOC: LABWHC1 09:16
PROVIDERS: ATTEND Internal Medicine Interventional Cardiology
DX: E78.2 Mixed hyperlipidemia (principal)
CPT/HCPCS: 36415; 80061; 84450; 84460

== ENCOUNTER → 2023-10-23 | Outpatient (CLI) | payer MEDICARE ==
[2023-10-23 20:08] LABS: Appearance,Urine Clear (Clear); Bilirubin,Urine Negative (Negative); Blood,Urine Negative (Negative); Color,Urine Yellow (Yellow); Ketones,Urine Negative (Negative); Nitrite,Urine Negative (Negative); PH, Urine 7.5; Specific Gravity,Urine 1.006 (1.001-1.030); Urobilinogen,Urine 0.2 E.U./DL
[2023-10-23 20:19] LABS: Bacteria,Urine None Seen (None Seen)
== END | disposition home or self-care (01) ==
LOC: LABPRL 14:50
PROVIDERS: ATTEND Family Medicine
DX: R33.9 Retention of urine, unspecified (principal)
CPT/HCPCS: 81001; 87086

== ENCOUNTER → 2023-11-13 | Outpatient (CLI) | payer MEDICARE ==
[2023-11-13 15:45] LABS: ALT 27 U/L (8-44); AST 24 U/L (13-35); Alkaline Phosphatase 85 U/L (41-126); BUN/Creat Ratio 24.27 Ratio (12.00-20.00); Blood Urea Nitrogen 26.7 mg/dL (9.0-27.0); Calcium 9.4 mg/dL (8.7-10.3); Chloride 105 mmol/L (96-109); Chol/HDL Ratio 2.58 Ratio; Globulin 2.5 g/dL (1.6-3.3); Glucose 112 mg/dL (70-110); LDL Cholesterol,Calculated 74.4 mg/dL (0.0-131.0); Potassium 4.7 mmol/L (3.5-5.5); Sodium 143 mmol/L (135-145); Total Bilirubin 0.5 mg/dL (0.3-1.2); Total Protein 6.5 g/dL (6.2-8.2); VLDL Calculation 13.24 mg/dL (5.00-40.00)
== END | disposition home or self-care (01) ==
LOC: LABWHC1 08:51
PROVIDERS: ATTEND Internal Medicine Interventional Cardiology
DX: Z13.820 Encounter for screening for osteoporosis (principal); E78.2 Mixed hyperlipidemia; I10 Essential (primary) hypertension
CPT/HCPCS: 36415; 80053; 80061

== ENCOUNTER → 2023-11-21 | Outpatient (CLI) | payer MEDICARE ==
--- NOTE | 2023-11-21 11:23 | MM ---
Reason for Exam: Clinical finding. Last mammogram was performed 1 year(s) and 3 month(s) ago. Indicated Problems: Pain. Patient History: Menarche at age 13. First Full-Term at age 25. Postmenopausal. 10/07/2005, Benign Core Biopsy on the left side. Risk Values: Hailey 5 year model risk: 2.0%. NCI Lifetime model risk: 2.4%. Tissue Density: There are scattered fibroglandular densities. Findings: Analyzed By CAD. Microclip left breast from prior biopsy. There is a circumscribed 6 mm nodule in the subareolar left breast better seen on the cc view. Otherwise, no suspicious microcalcification or other discrete abnormality is seen. Overall Assessment: Incomplete: need additional imaging evaluation, BI-RAD 0 Management: Diagnostic Breast Ultrasound of the left breast. Electronically signed and approved by: Arian Barahona M.D. Radiologist
--- NOTE | 2023-11-21 11:56 | USB ---
Reason for Exam: Additional evaluation requested from prior study. Patient History: Menarche at age 13. First Full-Term at age 25. Postmenopausal. 10/07/2005, Benign Core Biopsy on the left side. Risk Values: Hailey 5 year model risk: 2.0%. NCI Lifetime model risk: 2.4%. Technique: Method: Targeted. Prior Study Comparison: 10/11/2018 Bilateral Screening Mammogram, [facility]. 02/05/2021 Bilateral Screening Mammogram, [facility]. 09/06/2022 Bilateral MG 3D screening mammo w/cad, [facility]. Findings: The periareolar of the left breast, the axilla of the left breast and the retroareolar of the left breast were scanned. Targeted ultrasound subareolar and periareolar left breast including scanning of the axilla. There is subareolar duct ectasia noted. No other solid or cystic lesion. No axillary lymphadenopathy.. Overall Assessment: Probably benign, BI-RAD 3 Management: Diagnostic Mammogram of the left breast in 6 months. Further clinical management of patient's bilateral breast pain. A clinical breast exam by your physician is recommended on an annual basis and results should be correlated with mammographic findings. This exam should not preclude additional follow-up of suspicious palpable abnormalities. Results were given to the patient verbally at the time of exam. Electronically signed and approved by: Arian Barahona M.D. Radiologist
== END | disposition home or self-care (01) ==
LOC: RADMAMWWP 10:31
PROVIDERS: ATTEND Family Medicine
DX: N60.42 Mammary duct ectasia of left breast (principal); R92.323 Mammographic fibroglandular density, bilateral breasts; Z78.0 Asymptomatic menopausal state
CPT/HCPCS: 77062; 77066

== ENCOUNTER → 2024-01-09 | Outpatient (CLI) | payer MEDICARE ==
[2024-01-09 16:02] LABS: HCT 44.7 % (37.2-46.3); HGB 14.3 g/dL (12.0-15.0); MCH 30.2 pg (27.0-32.0); MCV 94.5 FL (80.0-97.0); Mean Platelet Volume 12.8 FL (9.5-12.2); NRBC Per 100 WBC 0 X 10*3/uL (0.00-0.01); Platelet Count 147 X 10*3/uL (140-440); RBC 4.73 X 10*6/uL (4.10-5.20); RDW 14.6 % (11.5-14.5); WBC 7.73 X 10*3/uL (4.50-10.00)
[2024-01-09 23:53] LABS: ALT 74 U/L (8-44); AST 47 U/L (13-35); Albumin 4.6 g/dL (3.8-4.9); Albumin/Globulin Ratio 1.84 Ratio (1.60-3.17); Alkaline Phosphatase 112 U/L (41-126); Blood Urea Nitrogen 20.7 mg/dL (9.0-27.0); Calcium 10.5 mg/dL (8.7-10.3); Carbon Dioxide 25.7 mmol/L (21.6-31.8); Chloride 102 mmol/L (96-109); Globulin 2.5 g/dL (1.6-3.3); Glucose 102 mg/dL (70-110); Potassium 4.2 mmol/L (3.5-5.5); Sodium 142 mmol/L (135-145); Total Bilirubin 1.1 mg/dL (0.3-1.2); Total Protein 7.1 g/dL (6.2-8.2)
[2024-01-09 23:58] LABS: NT-Pro-B-Type Natriuretic Pept 4323 pg/mL (0-450)
== END | disposition home or self-care (01) ==
LOC: LABWHC1 11:53
PROVIDERS: ATTEND Internal Medicine Interventional Cardiology
DX: I48.11 Longstanding persistent atrial fibrillation (principal); R06.02 Shortness of breath; R06.00 Dyspnea, unspecified
CPT/HCPCS: 36415; 80053; 83880; 85027

== ENCOUNTER → 2024-01-25 | Outpatient (CLI) | payer MEDICARE ==
[2024-01-25 16:36] LABS: BUN/Creat Ratio 29.42 Ratio (12.00-20.00); Blood Urea Nitrogen 35.3 mg/dL (9.0-27.0); Chloride 102 mmol/L (96-109); Glucose 162 mg/dL (70-110); Potassium 4.9 mmol/L (3.5-5.5); Sodium 140 mmol/L (135-145)
[2024-01-25 16:38] LABS: NT-Pro-B-Type Natriuretic Pept 4072 pg/mL (0-450)
== END | disposition home or self-care (01) ==
LOC: LABWHC1 12:40
PROVIDERS: ATTEND Internal Medicine Interventional Cardiology
DX: I48.11 Longstanding persistent atrial fibrillation (principal); R06.02 Shortness of breath; R60.0 Localized edema
CPT/HCPCS: 36415; 80048; 83880

== ENCOUNTER → 2024-02-21 | Outpatient (CLI) | payer MEDICARE ==
[2024-02-21 22:59] LABS: BUN/Creat Ratio 34.31 Ratio (12.00-20.00); Blood Urea Nitrogen 44.6 mg/dL (9.0-27.0); Calcium 9.9 mg/dL (8.7-10.3); Carbon Dioxide 25.9 mmol/L (21.6-31.8); Chloride 100 mmol/L (96-109); Glucose 107 mg/dL (70-110); NT-Pro-B-Type Natriuretic Pept 4077 pg/mL (0-450); Potassium 4.4 mmol/L (3.5-5.5); Sodium 141 mmol/L (135-145)
== END | disposition home or self-care (01) ==
LOC: LABWHC1 15:12
PROVIDERS: ATTEND Internal Medicine Interventional Cardiology
DX: I50.32 Chronic diastolic (congestive) heart failure (principal); I48.91 Unspecified atrial fibrillation
CPT/HCPCS: 36415; 80048; 83880

== ENCOUNTER → 2024-06-17 | Outpatient (CLI) | payer MEDICARE ==
[2024-06-17 15:46] LABS: BUN/Creat Ratio 19.86 Ratio (12.00-20.00); Blood Urea Nitrogen 27.8 mg/dL (9.0-27.0); Calcium 10.3 mg/dL (8.7-10.3); Carbon Dioxide 26.2 mmol/L (21.6-31.8); Chloride 101 mmol/L (96-109); Glucose 100 mg/dL (70-110); Potassium 5.3 mmol/L (3.5-5.5); Sodium 140 mmol/L (135-145)
[2024-06-17 15:47] LABS: T4, Free (Free Thyroxine) 1.81 ng/dL (0.80-1.80)
== END | disposition home or self-care (01) ==
LOC: LABWHC1 09:51
PROVIDERS: ATTEND Family Medicine
DX: E03.9 Hypothyroidism, unspecified (principal); R94.4 Abnormal results of kidney function studies
CPT/HCPCS: 36415; 80048; 84439; 84443

== ENCOUNTER → 2024-07-02 | Outpatient (CLI) | payer MEDICARE ==
[2024-07-02 20:58] LABS: Blood Urea Nitrogen 31.5 mg/dL (9.0-27.0); Calcium 9.7 mg/dL (8.7-10.3); Carbon Dioxide 27.7 mmol/L (21.6-31.8); Chloride 101 mmol/L (96-109); Glucose 119 mg/dL (70-110); Potassium 5.3 mmol/L (3.5-5.5); Sodium 140 mmol/L (135-145)
== END | disposition home or self-care (01) ==
LOC: LABWHC1 13:16
PROVIDERS: ATTEND Family Medicine
DX: R94.4 Abnormal results of kidney function studies (principal)
CPT/HCPCS: 36415; 80048

== ENCOUNTER → 2024-07-15 | Outpatient (CLI) | payer MEDICARE ==
--- NOTE | 2024-07-16 07:18 | MM ---
Reason for Exam: Follow-up at short interval from prior study. Last screening mammogram was performed 8 month(s) ago. Patient History: Menarche at age 13. First Full-Term at age 25. Postmenopausal. 10/07/2005, Benign Core Biopsy on the left side. Risk Values: Hailey 5 year model risk: 2.0%. NCI Lifetime model risk: 2.4%. Prior Study Comparison: 02/05/2021 Bilateral Screening Mammogram, [facility]. 09/06/2022 Bilateral MG 3D screening mammo w/cad, [facility]. 11/21/2023 Bilateral MG 3D diag mammo w/cad AD, [facility]. Tissue Density: Left: The breasts are heterogeneously dense, which may obscure small masses. Findings: Analyzed By CAD. No evidence for mass or distortion. Duct ectasia noted. Overall Assessment: Benign, BI-RAD 2 Management: Screening Mammogram of both breasts in 6 months. Results were given to the patient verbally at the time of exam. Patient should continue monthly self-breast exams. A clinical breast exam by your physician is recommended on an annual basis. This exam should not preclude additional follow-up of suspicious palpable abnormalities. Note on Hailey scores and lifetime risk: 1. A Hailey score greater than 3% is considered moderate risk. If this is the case, consider specialist referral to assess eligibility for a risk reducing agent. 2. If overall lifetime risk for the development of breast cancer is 20% or higher, the patient may qualify for future screening with alternating mammogram and breast MRI. [facility], , 07/15/2024 10:06 AM . Electronically signed and approved by: Raheem Aviles M.D. Radiologis
== END | disposition home or self-care (01) ==
LOC: RADMAMWWP 09:08
PROVIDERS: ATTEND Family Medicine
DX: R92.8 Other abnormal and inconclusive findings on diagnostic imaging of breast
CPT/HCPCS: 77061; 77065

== ENCOUNTER → 2024-11-29 | Outpatient (CLI) | payer MEDICARE ==
[2024-11-29 15:10] LABS: Basophils # (A) 0.05 X 10*3/uL (0.00-0.10); Basophils % (A) 0.7 %; Eosinophils # (A) 0.27 X 10*3/uL (0.04-0.35); Eosinophils % (A) 3.9 %; HCT 45.5 % (37.2-46.3); HGB 14.6 g/dL (12.0-15.0); Lymphocytes # (A) 1.49 X 10*3/uL (0.90-5.00); Lymphocytes % (A) 21.6 %; MCH 30.2 pg (27.0-32.0); MCHC 32.1 g/dL (32.0-37.0); MCV 94.2 FL (80.0-97.0); Monocytes # (A) 0.71 X 10*3/uL (0.20-1.00); Monocytes % (A) 10.3 %; NRBC Per 100 WBC 0 X 10*3/uL (0.00-0.01); Neutrophils # (A) 4.35 X 10*3/uL (1.80-7.70); Neutrophils % (A) 63.2 %; Platelet Count 146 X 10*3/uL (140-440); RBC 4.83 X 10*6/uL (4.10-5.20); RDW 14.5 % (11.5-14.5); WBC 6.89 X 10*3/uL (4.50-10.00)
[2024-11-29 16:12] LABS: ALT 24 U/L (8-44); AST 23 U/L (13-35); Albumin 4.2 g/dL (3.8-4.9); Albumin/Globulin Ratio 1.83 Ratio (1.60-3.17); Alkaline Phosphatase 73 U/L (41-126); Blood Urea Nitrogen 41.3 mg/dL (9.0-27.0); Calcium 9.4 mg/dL (8.7-10.3); Carbon Dioxide 25.9 mmol/L (21.6-31.8); Chloride 104 mmol/L (96-109); Chol/HDL Ratio 2.94 Ratio; Globulin 2.3 g/dL (1.6-3.3); Glucose 110 mg/dL (70-110); LDL Cholesterol,Calculated 73.8 mg/dL (0.0-131.0); Potassium 4.3 mmol/L (3.5-5.5); Sodium 140 mmol/L (135-145); T4, Free (Free Thyroxine) 1.63 ng/dL (0.80-1.80); Total Bilirubin 0.6 mg/dL (0.3-1.2); Total Protein 6.5 g/dL (6.2-8.2)
[2024-11-29 17:03] LABS: NT-Pro-B-Type Natriuretic Pept 3213 pg/mL (0-450)
== END | disposition home or self-care (01) ==
LOC: LABWHC1 09:22
PROVIDERS: ATTEND Internal Medicine Interventional Cardiology
DX: I50.32 Chronic diastolic (congestive) heart failure (principal); E78.5 Hyperlipidemia, unspecified; E03.9 Hypothyroidism, unspecified
CPT/HCPCS: 36415; 80053; 80061; 83880; 84439; 84443; 85025